=== PATIENT | female | born 2000 | race Caucasian/White ===

== ENCOUNTER 2022-03-14 08:21 | Outpatient (REF) | payer OTHER, SELFPAY | END 2022-03-14 08:22 | disposition home or self-care (01) | LOC: HO.LAB 08:21 | PROVIDERS: PCP Student in an Organized Health Care Education/Training Program; Visit Provider Internal Medicine Rheumatology | DX: Z13.89 Encounter for screening for other disorder (principal) ==

== ENCOUNTER 2022-03-14 09:45 | Outpatient (REF) | payer OTHER, SELFPAY ==
[2022-03-14 10:30] LABS: MANUAL DIFF FLAG NO
[2022-03-14 10:38] LABS: Basophils Percent Auto 0.7 % (0-2); Eosinophils Percent Auto 0.2 % (0-4); Hematocrit 37.7 % (37.0-47.0); Hemoglobin 12.4 g/dl (12.0-16.0); Imm Gran Abs Auto 0.02 X10*3/uL (0.00-0.03); Imm Gran Pct Auto 0.4 % (0.0-0.4); Lymphocytes Absolute Auto 1.2 X10*3/uL (1.2-4.9); Mean Corpuscular HGB Conc 32.9 g/dl (31.0-35.0); Mean Corpuscular Hemoglobin 30.6 pg (27.0-33.0); Mean Corpuscular Volume 93.1 fL (80.0-98.0); Mean Platelet Volume 9.9 fL (9.4-12.3); Monocytes Absolute Auto 0.4 X10*3/uL (0.1-1.2); Neutrophils Absolute Auto 2.9 x10*3/uL (2.0-8.3); Neutrophils Percent Auto 63.7 % (45-73); Platelet Count 274 X10*3/uL (160-400); Red Blood Count 4.05 X10*6/uL (4.20-5.50); Red Cell Distribution Width 11.8 % (11.0-16.0); White Blood Count 4.5 X10*3/uL (4.8-10.8)
[2022-03-14 11:19] LABS: Erythrocyte Sedimentation Rate 13 MM/HR (0-20)
[2022-03-14 11:30] LABS: Alanine Aminotransferase 17 U/L (0-31); Albumin Level 4.6 g/dL (3.5-5.0); Alkaline Phosphatase 39 U/L (39-117); Anion Gap 13 (12-20); Aspartate Amino Transferase 20 U/L (5-31); Bilirubin Total 0.3 mg/dL (0.0-1.0); Blood Urea Nitrogen 9 mg/dL (9-16); C Reactive Protein < 0.04 mg/dL (< or = 0.50); Calcium 9.7 mg/dL (8.4-10.2); Carbon Dioxide 23 mmol/L (22-29); Chloride 107 mmol/L (96-108); Estimated Glomerular Filt Rate > 60; Glucose Random 89 mg/dL (60-115); Potassium 3.5 mmol/L (3.3-5.1); Sodium 139 mmol/L (135-145); Total Protein 7.1 g/dL (6.5-8.0)
[2022-03-14 14:57] LABS: Creatinine Urine 50.72 mg/dL; Total Protein Urine Random < 7 mg/dL (<12)
[2022-03-15 09:18] LABS: Complement C3 79 mg/dL (83-193)
[2022-03-17 13:18] LABS: Anti DNA DS Antibody 68 IU/mL
== END 2022-03-14 09:46 | disposition home or self-care (01) ==
LOC: HO.10HDL 09:45
PROVIDERS: Visit Provider Internal Medicine Rheumatology
DX: M32.9 Systemic lupus erythematosus, unspecified (principal); Z79.60 Long term (current) use of unspecified 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 and immunosuppressants
CPT/HCPCS: 36415; 80053; 84156; 85025; 85652; 86140; 86160; 86225

== ENCOUNTER → 2022-05-01 11:18 | Outpatient (BNVA) | payer OTHER, SELFPAY | PROVIDERS: PCP Student in an Organized Health Care Education/Training Program; Visit Provider Internal Medicine Rheumatology | DX: Z13.89 Encounter for screening for other disorder (principal) ==

== ENCOUNTER 2022-05-01 12:56 | Outpatient (REF) | payer OTHER, SELFPAY ==
[2022-05-01 13:41] LABS: MANUAL DIFF FLAG NO
[2022-05-01 14:04] LABS: Basophils Percent Auto 0.4 % (0-2); Eosinophils Percent Auto 0.7 % (0-4); Hematocrit 37.9 % (37.0-47.0); Hemoglobin 12.7 g/dl (12.0-16.0); Imm Gran Abs Auto 0.01 X10*3/uL (0.00-0.03); Imm Gran Pct Auto 0.2 % (0.0-0.4); Lymphocytes Percent Auto 21.4 % (20-40); Mean Corpuscular HGB Conc 33.5 g/dl (31.0-35.0); Mean Corpuscular Hemoglobin 31.1 pg (27.0-33.0); Mean Corpuscular Volume 92.9 fL (80.0-98.0); Mean Platelet Volume 10.7 fL (9.4-12.3); Monocytes Absolute Auto 0.4 X10*3/uL (0.1-1.2); Monocytes Percent Auto 8.1 % (2-11); Neutrophils Absolute Auto 3.1 x10*3/uL (2.0-8.3); Neutrophils Percent Auto 69.2 % (45-73); Platelet Count 259 X10*3/uL (160-400); Red Blood Count 4.08 X10*6/uL (4.20-5.50); Red Cell Distribution Width 11.5 % (11.0-16.0); White Blood Count 4.5 X10*3/uL (4.8-10.8)
[2022-05-01 14:36] LABS: Anion Gap 13 (12-20); Blood Urea Nitrogen 8 mg/dL (9-16); C Reactive Protein < 0.04 mg/dL (< or = 0.50); Calcium 9.2 mg/dL (8.4-10.2); Carbon Dioxide 24 mmol/L (22-29); Chloride 109 mmol/L (96-108); Estimated Glomerular Filt Rate > 60; Glucose Random 87 mg/dL (60-115); Potassium 3.5 mmol/L (3.3-5.1); Sodium 142 mmol/L (135-145)
[2022-05-01 14:53] LABS: Erythrocyte Sedimentation Rate 16 MM/HR (0-20)
== END 2022-05-01 12:57 | disposition home or self-care (01) ==
LOC: HO.10HDL 12:56
PROVIDERS: Visit Provider Internal Medicine Rheumatology
DX: M32.9 Systemic lupus erythematosus, unspecified (principal); Z79.60 Long term (current) use of unspecified 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 and immunosuppressants
CPT/HCPCS: 36415; 80048; 85025; 85652; 86140

== ENCOUNTER → 2022-08-17 11:07 | Outpatient (BNVA) | payer OTHER, SELFPAY | PROVIDERS: PCP Student in an Organized Health Care Education/Training Program; Visit Provider Internal Medicine Rheumatology ==

== ENCOUNTER 2022-12-04 10:14 | Outpatient (AMB) | payer OTHER, SELFPAY ==
--- NOTE | 2022-12-04 10:21 | A.OFFVIS_ITS ---
Intake Vital Signs 12/04/22 10:23 Weight 130 lb 8.218 oz BP 112/70 Blood Pressure Location Rt brachial Position Sitting Pulse 104 H Pulse Source Pulse Oximeter Temp 98.1 F Temp Source Skin Pulse Oximetry (%) 99 Oxygen Delivery Method Room Air Intake Visit Reasons: sle Intake Note: Patient presents today to follow up on SLE. c/o daily headaches x 2.5 wks. Frequent ZAMBRANO's for 2 years now. Seeing neurology. Allergies No Known Allergies Allergy (Verified 12/04/22 10:26) HPI HPI Comments History of Present Illness Details Valdez, 22yo, [employer] student, returns for follow-up of SLE; mother accompanies patient here today. The patient is doing well at todays visit - good days are more than bad achy days. The patient remains on 200 mg daily hydroxychloroquine and 125 mg daily azathioprine, and no takes amitriptyline 25 mg. The patient continues with sumatriptan for migraine headache therapy. Per patient, arthralgias tend to come and go, not lasting more than two days and is commonly in the hands and the knees. Patient denies recent oral ulcers, hair loss but has a mild rash on nose bridge. There has been no abdominal pain or chest pain. The patient continues to do well in college. Denies fevers, unexplained weight-loss or weight-gain, thinning hair or hair loss; dry mouth, mouth sores or ulcers; ringing in the ear, The patient does experience symptoms such as rashes, severe fatigue and nausea, if out in the sun for long periods. However, has not had any recent episodes. Patient denies Raynaud's phenomenon, denies blood or froth in urine; patient denies SOB and chest pain. Patient denies episodes of Carditis or Pleuritis. Patient denies any history of DVT/PE. PFSH Surgical History [place] teeth extracted Family History Maternal Grandfather Rheumatoid arthritis Maternal Aunt Ulcerative colitis Father Hypertension Mother Hypertension Social History Household Members: Family Housing: Apartment Alcohol intake: never Patient Tobacco Use Status: Never used Tobacco Current occupational status: student Review of Systems Const Details: Some fatigue at times, particularly when she is having more headaches and arthralgias. Negative for appetite change, weight change, fever, chills, malaise Eyes Details: She believes the migraine headaches have been a bit more frequent recently. Negative for vision change, dry eyes, and dizziness ENT Details: Negative for hearing change, tinnitus, oral ulcer, nose bleeds and oral dryness. Card Details: Negative chest pain, edema and syncope Resp Details: Negative for SOB, cough and wheezing GI Details: Negative indigestion/heartburn, nausea, abdominal pain, bowel changes, diarrhea, constipation and bloody stool. Skin/Breast Details: Negative for itching, rash, hives, Raynaud's symptoms, sun sensitivity, and skin cancer Neuro Details: Negative for epilepsy, palsy, stroke, changes in speech, tingling and weakness Psych Details: Negative for anxiety, depression and stress Endo Details: Negative for polyuria and polydypsia Trey/Lymph Details: Negative for excessive bruising or bleeding. Physical Exam Vital Signs: Last Vital Signs Temp 98.1 F 12/04/22 10:23 Pulse 104 H 12/04/22 10:23 BP 112/70 12/04/22 10:23 Pulse Ox 99 12/04/22 10:23 Oxygen Delivery Method Room Air 12/04/22 10:23 APPEARANCE: Patient in no acute distress EYES no redness, pupils equal and reactive to light, eyelids normal EARS:? External ear normal, canal clear and tympanic membrane normal. NOSE/SINUS:? Airflow through both nares, no nasal discharge, no bleeding THROAT:? Oral mucosa moist, no ulcerations NECK:? No thyromegaly or masses, no adenopathy, trachea midline. HEART:? Regulrar rhythm, S1-S2 heard, no murmurs, rubs or gallops. LUNG:? Clear to percussion and auscultation ABD:? Normal bowel sounds, no organomegaly, masses or tenderness. EXTREMITIES:? No edema, no calf tenderness, normal peripheral pulses. NEURO:? Oriented and alert x3.? No focal weakness.? Reflexes symmetric.? Gait normal. SKIN:? There are no skin lesions evident. No objective signs of Raynaud's phenomenon. JOINT EXAM: ?? Cervical Spine:.? Full range of motion without pain; no tenderness. Thoracic Spine:.? No scoliosis.? No tenderness on palpation. Lumbar Spine:.? Alignment normal.? Full range of motion without pain, no tenderness. Chest Wall:.? No tenderness, swelling, increased warmth or erythema. Hands:.? Normal pain-free range of motion without tenderness, swelling, increased warmth or erythema. Able to make a full fist and has a good webfed offset press operator strength. Wrists:.? Normal pain-free range of motion without tenderness, swelling, increased warmth or erythema. Elbows:. Normal pain-free range of motion without tenderness, swelling, increased warmth or erythema. Shoulders:.?? Full range of motion without pain. No tenderness, weakness, swelling, increased warmth or erythema. Hips:.? Full range of motion without pain. Hip bursa:.? No tenderness. Knees:.?? Normal pain-free range of motion without tenderness, swelling, increased warmth or erythema.? There is no effusion or crepitation Ankles:.? Normal pain-free range of motion without tenderness, swelling, increased warmth or erythema. Feet:.? Normal pain-free range of motion without tenderness, swelling, increased warmth or erythema. Tender points:? No tenderness to digital palpation at the occiput, trapezius, second rib, lateral epicondyle, knees, greater trochanter and gluteal area bilaterally. ? ? 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 Prednisone and Plaquenil started. Methotrexate added but changed to azathioprine in fall. March 2022 eye exam okay with respect to hydroxychloroquine toxicity. Code(s): M32.9 - Systemic lupus erythematosus, unspecified Plan Patient with SLE doing reasonably well with mostly complaints of intermittent arthralgias, fatigue and migraine headaches. No tenderness to joints appreciated on exam. She has a rash to her nose for the last 2 weeks (will continue to monitor). Patient indicated this similar rash was part of her initial diagnosis. The lab work from June 2022 did show still slight suppression of serum complement but the acute phase reactants remain normal. We do need updated labs and will recheck the lab today. We will continue all medications as is for now and consider tapering Prednisone at next visit. The patient gets stressed from school and that often increases the frequency and intensity of the headaches. Encouraged patient to increase activities that helps to relax such as take walks to clear head and regroup;also to engage with friends. All these things can help to manage stress. Given that fatigue is a known compliment to SLE, encouraged adequate rest and sleep (will discuss sleep hygiene next visit). We discussed nutrition and hydration. Currently takes Calcium and Vitamin D, B2 and Magnesium Malate. Encourage that since SLE is likely a life Dx, it is best to be mindful of and intentional with self care from now as this can help to lessen the frequency of flares and mitigate the severity of the flares. Follow-up in 4 months. Orders: Orders Complement C4 Today M32.9 - Systemic lupus erythematosus, unspecified Complement C3 Today M32.9 - Systemic lupus erythematosus, unspecified Erythrocyte Sedimentation Rate Today M32.9 - Systemic lupus erythematosus, unspecified Protein Creatinine Ratio, Ur Today M32.9 - Systemic lupus erythematosus, unspecified Comprehensive Met. Panel Today M32.9 - Systemic lupus erythematosus, unspecified C Reactive Protein 4 Months M32.9 - Systemic lupus erythematosus, unspecified, Z79.60 - snf (current) use of unspecified 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 and immunosuppressants Complete Blood Count Auto Diff 4 Months M32.9 - Systemic lupus erythematosus, unspecified, Z79.60 - snf (current) use of unspecified 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 and immunosuppressants Erythrocyte Sedimentation Rate 4 Months M32.9 - Systemic lupus erythematosus, unspecified, Z79.60 - snf (current) use of unspecified 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 and immunosuppressants C Reactive Protein Today M32.9 - Systemic lupus erythematosus, unspecified Complete Blood Count Auto Diff Today M32.9 - Systemic lupus erythematosus, unspecified UA and rflx microscopic Today M32.9 - Systemic lupus erythematosus, unspecified Comprehensive Met. 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
[2022-12-04 10:23] VITALS: BP 112/70; PULSE 104; TEMP 36.7; O2SAT 99
== END 2022-12-04 10:51 | disposition home or self-care (01) ==
PROVIDERS: PCP Student in an Organized Health Care Education/Training Program; Visit Provider Nurse Practitioner Family
DX: M32.8 Other forms of systemic lupus erythematosus (principal); Z79.624 Long term (current) use of inhibitors of nucleotide synthesis
CPT/HCPCS: 99214

== ENCOUNTER → 2022-12-04 10:14 | Outpatient (BNVA) | payer OTHER, SELFPAY | PROVIDERS: PCP Student in an Organized Health Care Education/Training Program; Visit Provider Nurse Practitioner Family ==

== ENCOUNTER 2023-04-03 12:10 | Outpatient (REF) | payer OTHER, SELFPAY ==
[2023-04-03 12:23] LABS: MANUAL DIFF FLAG NO
[2023-04-03 13:34] LABS: Basophils Percent Auto 0.6 % (0-2); Eosinophils Percent Auto 1.1 % (0-4); Hematocrit 36.9 % (37.0-47.0); Hemoglobin 12.4 g/dl (12.0-16.0); Imm Gran Abs Auto 0.02 X10*3/uL (0.00-0.03); Imm Gran Pct Auto 0.6 % (0.0-0.4); Lymphocytes Absolute Auto 1.4 X10*3/uL (1.2-4.9); Lymphocytes Percent Auto 39.6 % (20-40); Mean Corpuscular HGB Conc 33.6 g/dl (31.0-35.0); Mean Corpuscular Hemoglobin 30.8 pg (27.0-33.0); Mean Corpuscular Volume 91.6 fL (80.0-98.0); Mean Platelet Volume 10.1 fL (9.4-12.3); Monocytes Absolute Auto 0.5 X10*3/uL (0.1-1.2); Monocytes Percent Auto 12.6 % (2-11); Neutrophils Absolute Auto 1.6 x10*3/uL (2.0-8.3); Neutrophils Percent Auto 45.5 % (45-73); Platelet Count 289 X10*3/uL (160-400); Red Blood Count 4.03 X10*6/uL (4.20-5.50); Red Cell Distribution Width 12.1 % (11.0-16.0); White Blood Count 3.6 X10*3/uL (4.8-10.8)
[2023-04-03 13:39] LABS: Alanine Aminotransferase 60 U/L (0-31); Alkaline Phosphatase 46 U/L (39-117); Anion Gap 11 (12-20); Aspartate Amino Transferase 29 U/L (5-31); Bilirubin Total 0.4 mg/dL (0.0-1.0); Blood Urea Nitrogen 10 mg/dL (9-16); C Reactive Protein < 0.04 mg/dL (< or = 0.50); Calcium 9.4 mg/dL (8.4-10.2); Carbon Dioxide 24 mmol/L (22-29); Chloride 111 mmol/L (96-108); Estimated Glomerular Filt Rate > 60; Glucose Random 79 mg/dL (60-115); Potassium 3.4 mmol/L (3.3-5.1); Sodium 143 mmol/L (135-145); Total Protein 6.9 g/dL (6.5-8.0)
[2023-04-03 13:49] LABS: Erythrocyte Sedimentation Rate 22 MM/HR (0-20)
== END 2023-04-03 12:11 | disposition home or self-care (01) ==
LOC: HO.LAB 12:10
PROVIDERS: PCP Student in an Organized Health Care Education/Training Program; Visit Provider Nurse Practitioner Family
DX: M32.9 Systemic lupus erythematosus, unspecified (principal); Z79.60 Long term (current) use of unspecified 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 and immunosuppressants
CPT/HCPCS: 36415; 80053; 85025; 85652; 86140

== ENCOUNTER 2023-04-10 09:44 | Outpatient (AMB) | payer OTHER, SELFPAY ==
--- NOTE | 2023-04-10 09:45 | A.OFFVIS_ITS ---
Intake Vital Signs 04/10/23 09:46 Height 5 ft 2 in Weight 124 lb BMI 22.7 BP 108/58 L Blood Pressure Location Rt brachial Position Sitting Pulse 80 Pulse Source Pulse Oximeter Temp 97.2 F Temp Source Skin Pulse Oximetry (%) 97 Oxygen Delivery Method Room Air Intake Visit Reasons: sle Intake Note: Patient last seen 12/04/22 by Bon, presents today for SLE follow up and test results. Emergency Medicine Specialist Required: No Accompanied by: Mother Allergies No Known Allergies Allergy (Verified 04/10/23 09:51) HPI HPI Comments History of Present Illness Details Valdez, 22yo, [employer] student, returns for follow-up of SLE; mother accompanies patient here today. The patient is not doing well at todays visit - more aches to knees and hands. The patient thinks this may be due to the migraines that were frequent for a while. The patient remains on 200 mg daily hydroxychloroquine and 125 mg daily azathioprine, and no takes amitriptyline 25 mg. She continues with sumatriptan for migraine headache therapy. Per patient, arthralgias tend to come and go, not lasting more than two days or three and is commonly in the hands and the knees. Patient denies recent oral ulcers and hair loss and rash is gone. There has been no abdominal pain or chest pain or SOB. The patient continues to do well in college. Denies fevers, unexplained weight-loss or weight-gain, thinning hair or hair loss; dry mouth, mouth sores or ulcers; ringing in the ear, The patient does experience symptoms such as rashes, severe fatigue and nausea, if out in the sun for long periods. However, has not had any recent episodes. Patient denies Raynaud's phenomenon, denies blood or froth in urine; patient denies SOB and chest pain. Patient denies episodes of Carditis or Pleuritis. Patient denies any history of DVT/PE. [facility] Surgical History [place] teeth extracted Family History Maternal Grandfather Rheumatoid arthritis Maternal Aunt Ulcerative colitis Father Hypertension Mother Hypertension Social History Household Members: Family Housing: Apartment Alcohol intake: never Patient Tobacco Use Status: Never used Tobacco Current occupational status: student Physical Exam Vital Signs: Last Vital Signs Temp 97.2 F 04/10/23 09:46 Pulse 80 04/10/23 09:46 BP 108/58 L 04/10/23 09:46 Pulse Ox 97 04/10/23 09:46 Oxygen Delivery Method Room Air 04/10/23 09:46 BMI result Body Mass Index 22.7 APPEARANCE: Patient in no acute distress EYES no redness, eyelids normal EARS:? External ear normal. NOSE/SINUS:? Airflow through both nares, no nasal discharge, no bleeding THROAT:? Oral mucosa moist, no ulcerations NECK:? No thyromegaly or masses, no adenopathy, trachea midline. HEART:? Regulrar rhythm, S1-S2 heard, no murmurs, rubs or gallops. LUNG:? Clear to percussion and auscultation EXTREMITIES:? No edema, no calf tenderness, normal peripheral pulses. NEURO:? Oriented and alert x3.? No focal weakness.? Reflexes symmetric.? Gait normal. SKIN:? There are no skin lesions evident. No objective signs of Raynaud's phenomenon. JOINT EXAM: Cervical Spine:.? Full range of motion without pain; no tenderness. Thoracic Spine:.? No scoliosis.? No tenderness on palpation. Lumbar Spine:.? Alignment normal.? Full range of motion without pain, no tenderness. Chest Wall:.? No tenderness, swelling, increased warmth or erythema. Hands:.? Normal pain-free range of motion with mild tenderness, but no swelling, increased warmth or erythema. Able to make a full fist and has a good variety lathe operator strength. Wrists:.? Normal pain-free range of motion without tenderness, swelling, increased warmth or erythema. Elbows:. Normal pain-free range of motion without tenderness, swelling, increased warmth or erythema. Shoulders:.?? Full range of motion without pain. No tenderness, weakness, swelling, increased warmth or erythema. Hips:.? Full range of motion without pain. Hip bursa:.? No tenderness. Knees:.?? Normal pain-free range of motion without tenderness, swelling, increased warmth or erythema.? There is no effusion or crepitation Ankles:.? Normal pain-free range of motion without tenderness, swelling, increased warmth or erythema. Feet:.? Normal pain-free range of motion without tenderness, swelling, increased warmth or erythema. Tender points:? No tenderness to digital palpation at the occiput, trapezius, second rib, lateral epicondyle, knees, greater trochanter and gluteal area bilaterally. ? ? 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 Prednisone and Plaquenil started. Methotrexate added but changed to azathioprine in fall. March 2022 eye exam okay with respect to hydroxychloroquine toxicity. 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 Kellogg with SLE doing reasonably well with mostly complaints of intermittent arthralgias, fatigue and migraine headaches. No significant tenderness to joints appreciated on exam. The lab work from June 2022 did show still slight suppression of serum complement and now recent ESR is slightly elevated. Some of the labs were not done per patient - urinalysis and complements. We will increase HCQ to 200 gm BID and assess. There is a recent increase in ALT which could be due to increase tylenol use for migraines. We will continue to monitor that. She has had to stopp MTX in the past because of elevate ALT/AST. We hope this is not going to happen on Azothioprine. If the HCQ increase is effective, we may consider to stop Prednisone. Labs are ordered. The patient gets stressed from school and that often increases the frequency and intensity of the headaches. Encouraged patient to increase activities that helps to relax such as take walks to clear head and regroup;also to engage with friends. All these things can help to manage stress. Given that fatigue is a known compliment to SLE, encouraged adequate rest and sleep (will discuss sleep hygiene next visit). We discussed nutrition and hydration. Currently takes Calcium and Vitamin D, B2 and Magnesium Malate. Encourage that since SLE is l ikely a life Dx, it is best to be mindful of and intentional with self care from now as this can help to lessen the frequency of flares and mitigate the severity of the flares. Follow-up in 4 months. Medications: Changed From hydroxychloroquine 200 mg PO QAM 90 tabs 1RF M32.9 - Systemic lupus erythematosus, unspecified To hydroxychloroquine 200 mg PO BID 180 tabs 1RF M32.9 - Systemic lupus erythematosus, unspecified Coding Level of Care Code Tele Est Pt Level 3 (79485) Diagnoses Long-term use of immunosuppressant medication Z79.60 Systemic lupus erythematosus (SLE) in adult M32.9
[2023-04-10 09:46] VITALS: BP 108/58; PULSE 80; TEMP 36.2; O2SAT 97; BMI 22.7
== END 2023-04-10 10:36 | disposition home or self-care (01) ==
PROVIDERS: PCP Student in an Organized Health Care Education/Training Program; Visit Provider Nurse Practitioner Family
DX: M32.9 Systemic lupus erythematosus, unspecified (principal); Z79.60 Long term (current) use of unspecified 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 and immunosuppressants
CPT/HCPCS: 99214

== ENCOUNTER → 2023-04-10 09:44 | Outpatient (BNVA) | payer OTHER, SELFPAY | PROVIDERS: PCP Student in an Organized Health Care Education/Training Program; Visit Provider Nurse Practitioner Family ==

== ENCOUNTER 2023-08-30 15:25 | Outpatient (AMB) | payer OTHER, SELFPAY ==
--- NOTE | 2023-08-30 15:29 | A.OFFVIS_ITS ---
Vital Signs 08/30/23 15:32 Height 5 ft 2 in Weight 126 lb 15.78 oz BMI 23.2 BP 112/70 Blood Pressure Location Rt brachial Position Sitting Pulse 76 Pulse Source Pulse Oximeter Pulse Oximetry (%) 99 Oxygen Delivery Method Room Air Intake Visit Reasons: SLE/Labs/CM Intake Note: Patient presents for SLE. Allergies No Known Allergies Allergy (Verified 08/30/23 15:31) Medication List - Last Reconciled 08/30/23 by Ronak Marte MD azathioprine 50 mg PO TID calcium carbonate-vitamin D3 600 mg-12.5 mcg (500 unit) caps PO hydroxychloroquine 400 mg x 3 days a week, 200 mg x 4 days a week norethindrone (contraceptive) 0.35 mg PO DAILY prednisone 5 mg PO DAILY sumatriptan succinate 50 mg PO HPI Comments Details: This is a 23-year-old female with SLE who presents for follow-up. This is her 1st visit with me. She used to follow-up with Lilian Vee. Patient is on hydroxychloroquine 200 mg Twice daily, prednisone 5 mg daily and azathioprine 150 mg daily. She states that since increasing hydroxychloroquine dose last visit she did not notice much improvement. She continues to have intermittent and migrating joint pain affecting different joints without significant swelling. Minimal rashes affecting her chest. She has not had any fevers, weight loss, hair loss, canker sores, blood or froth in urine. She has done her blood work 2 weeks ago at [facility] but it has not been sent to our office. [facility] Surgical History [place] teeth extracted Family History Maternal Grandfather Rheumatoid arthritis Maternal Aunt Ulcerative colitis Father Hypertension Mother Hypertension Social History Household Members: Family Housing: Apartment Alcohol intake: never Patient Tobacco Use Status: Never used Tobacco Current occupational status: student Female Reproductive History Menstrual Total pregnancies: 0 Review of Systems Const Denies fever(s) and Denies weight loss Musc Reports arthralgias Skin/Breast Reports rash Physical Exam Vital Signs: Last Vital Signs Pulse 76 08/30/23 15:32 BP 112/70 08/30/23 15:32 Pulse Ox 99 08/30/23 15:32 Oxygen Delivery Method Room Air 08/30/23 15:32 BMI result Body Mass Index 23.2 Const General: cooperative, healthy appearing and comfortable Nutritional Appearance: average body habitus Orientation/consciousness: patient oriented x3 Limitations: no limitations HEENT Head: Yes normocephalic and Yes atraumatic Mouth: moist mucous membranes Resp Effort & Inspection: normal respiratory effort and able to speak in complete sentences Auscultation: clear to auscultation bilaterally Cardio Rate: regular rate Rhythm: regular rhythm GI Inspection: No distended Palpation (GI): Soft to palpation and nontender Skin General skin exam: no rashes or lesions noted Neuro General: patient oriented x3 Extrem Other: No active synovitis Normal nailfold capillaroscopy Assessment & Plan Assessment & Plan (1) Systemic lupus erythematosus (SLE) in adult: Comment: Onset summer 2020: Sun sensitive skin rash, arthralgias, positive DsDNA. Prednisone and Plaquenil started. MTX added but changed to azathioprine in fall. March 2022 eye exam okay with respect to hydroxychloroquine toxicity. Code(s): M32.9 - Systemic lupus erythematosus, unspecified Category: Medical Plan: This is a 23-year-old female with SLE who presents for follow-up. This is her 1st visit with me. She used to follow-up with Lilian Vee. Patient is on hydroxychloroquine 200 mg Twice daily, prednisone 5 mg daily and azathioprine 150 mg daily. I think patient exceeds her maximum hydroxychloroquine dose based on her body weight. Lower hydroxychloroquine to 400 mg x 3 days a week and 200 mg x 4 days a week On exam I do not see any features of active SLE, patient completed her blood work 2 weeks ago however but we did not receive it. I will called patient once we have the blood work on file Will consider lowering prednisone to 5 mg daily alternating with 2.5 mg daily Labs before next visit in 4 months (2) Long-term use of hydroxychloroquine: Comment: Eye exam okay 03/2022 Code(s): Z79.899 - Other long term care pharmacist (current) drug therapy Category: Medical Plan: Patient aware of risk of retinopathy associated with hydroxychloroquine. Follow-up regularly with data center solutions architect Hydroxychloroquine dose adjusted today (3) Long-term use of immunosuppressant medication: Code(s): Z79.60 - custodial (current) use of unspecified 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 and immunosuppressants Category: Medical Plan: Monitor safety labs for azathioprine Plan I spent 46 minutes reviewing patient's chart, evaluating patient, ordering diagnostic workup, counseling patient and documenting in the chart Orders: Orders Comprehensive Met. Panel 4 Months Ronak Marte MD M32.9 - Systemic lupus erythematosus, unspecified, Z79.899 - Other long term care pharmacist (current) drug therapy C Reactive Protein 4 Months Ronak Marte MD M32.9 - Systemic lupus erythematosus, unspecified, Z79.899 - Other long term care pharmacist (current) drug therapy Anti DNA DS Antibody 4 Months Ronak Marte MD M32.9 - Systemic lupus erythematosus, unspecified, Z79.899 - Other long term care pharmacist (current) drug therapy Complement C4 4 Months Ronak Marte MD M32.9 - Systemic lupus erythematosus, unspecified, Z79.899 - Other correction (current) drug therapy Complete Blood Count Auto Diff 4 Months Ronak Marte MD M32.9 - Systemic lupus erythematosus, unspecified, Z79.899 - Other long term care pharmacist (current) drug therapy Erythrocyte Sedimentation Rate 4 Months oRnak Marte MD M32.9 - Systemic lupus erythematosus, unspecified, Z79.899 - Other long term care pharmacist (current) drug therapy Complement C3 4 Months Ronak Marte MD M32.9 - Systemic lupus erythematosus, unspecified, Z79.899 - Other correction (current) drug therapy Protein Creatinine Ratio, Ur 4 Months Ronak Marte MD M32.9 - Systemic lupus erythematosus, unspecified, Z79.899 - Other long term care pharmacist (current) drug therapy UA w Microscopic 4 Months Ronak Marte MD M32.9 - Systemic lupus erythem atosus, unspecified, Z79.899 - Other correction (current) drug therapy Medications: Changed From hydroxychloroquine 200 mg PO BID 180 tabs 1RF M32.9 - Systemic lupus erythematosus, unspecified To hydroxychloroquine 400 mg x 3 days a week, 200 mg x 4 days a week M32.9 - Systemic lupus erythematosus, unspecified NOLAN Murphy-HEAVEN Coding Level of Care Code Est Pt Level 5 (74875) Complex EM visit Add On G2211 Diagnoses Systemic lupus erythematosus (SLE) in adult M32.9 Long-term use of hydroxychloroquine Z79.899 Long-term use of immunosuppressant medication Z79.60
[2023-08-30 15:32] VITALS: BP 112/70; PULSE 76; O2SAT 99; BMI 23.2
== END 2023-08-30 16:02 | disposition home or self-care (01) ==
PROVIDERS: PCP Student in an Organized Health Care Education/Training Program; Visit Provider Student in an Organized Health Care Education/Training Program
DX: M32.9 Systemic lupus erythematosus, unspecified (principal); Z79.899 Other long term (current) drug therapy; Z79.60 Long term (current) use of unspecified 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 and immunosuppressants
CPT/HCPCS: 99215; G2211

== ENCOUNTER → 2023-08-30 15:25 | Outpatient (BNVA) | payer OTHER, SELFPAY | PROVIDERS: PCP Student in an Organized Health Care Education/Training Program; Visit Provider Student in an Organized Health Care Education/Training Program ==

== ENCOUNTER 2024-01-01 14:01 | Outpatient (AMB) | payer OTHER, SELFPAY ==
--- NOTE | 2024-01-01 14:02 | MHC.OFFVIS ---
Vital Signs 01/01/24 14:05 Height 5 ft 2 in Weight 127 lb 15.78 oz BMI 23.4 BP 115/70 Blood Pressure Location Rt brachial Position Sitting Pulse 65 Pulse Source Pulse Oximeter Pulse Oximetry (%) 98 Oxygen Delivery Method Room Air Intake Visit Reasons: SLE/LM Intake Note: Patient presents for SLE. Allergies No Known Allergies Allergy (Verified 01/01/24 14:09) Medication List - Last Reconciled 01/01/24 by Ronak Marte MD atogepant (Qulipta) 60 mg PO DAILY azathioprine 50 mg PO TID calcium carbonate-vitamin D3 600 mg-12.5 mcg (500 unit) caps PO hydroxychloroquine 400 mg x 3 days a week, 200 mg x 4 days a week norethindrone (contraceptive) 0.35 mg PO DAILY prednisone 5 mg PO DAILY sumatriptan succinate 50 mg PO HPI Comments Details: This is a 23-year-old female with SLE who presents for follow-up. She remains on prednisone 5 mg daily, hydroxychloroquine as prescribed and azathioprine 50 mg t.i.d.. Patient states that she is doing about the same overall. She has been quite stressed recently she found out that her grandmother has cancer. She states that she gets intermittent joint pains, every 2-3 days she would have minor swelling or pain of 1 of her joints. She states that she increases her prednisone to 10 mg a day every 4-6 weeks. She would do it for 2-3 days. She has not had any skin significant skin rashes. No fevers or weight loss. REPLACED BY [facility] Surgical History [place] teeth extracted Family History Maternal Grandfather Rheumatoid arthritis Maternal Aunt Ulcerative colitis Father Hypertension Mother Hypertension Social History Household Members: Family Housing: Apartment Alcohol intake: never Patient Tobacco Use Status: Never used Tobacco Current occupational status: student Review of Systems Const Denies fever(s) and Denies weight loss Musc Reports arthralgias and Reports joint swelling Physical Exam Vital Signs: Last Vital Signs Pulse 65 01/01/24 14:05 BP 115/70 01/01/24 14:05 Pulse Ox 98 01/01/24 14:05 Oxygen Delivery Method Room Air 01/01/24 14:05 BMI result Body Mass Index 23.4 Const General: cooperative, healthy appearing and comfortable Nutritional Appearance: average body habitus Orientation/consciousness: patient oriented x3 Limitations: no limitations HEENT Head: Yes normocephalic and Yes atraumatic Mouth: moist mucous membranes Resp Effort & Inspection: normal respiratory effort and able to speak in complete sentences Auscultation: clear to auscultation bilaterally Cardio Rate: regular rate Rhythm: regular rhythm GI Inspection: No distended Palpation (GI): Soft to palpation and nontender Skin General skin exam: no rashes or lesions noted Neuro General: patient oriented x3 Extrem Other: No active synovitis Normal nailfold capillaroscopy Assessment & Plan Assessment & Plan (1) Systemic lupus erythematosus (SLE) in adult: Comment: Onset summer 2020: Sun sensitive skin rash, arthralgias, positive DsDNA. Prednisone and Plaquenil started. MTX added but changed to azathioprine in fall. March 2022 eye exam okay with respect to hydroxychloroquine toxicity. Code(s): M32.9 - Systemic lupus erythematosus, unspecified Category: Medical Plan: This is a 23-year-old female with SLE who presents for follow-up. Patient is on hydroxychloroquine prednisone 5 mg daily and azathioprine 150 mg daily. Doing well overall. No need to escalate her treatment at this time. Continue hydroxychloroquine to 400 mg x 3 days a week and 200 mg x 4 days a week Continue with prednisone 5 mg daily and azathioprine 150 mg daily Labs today and before next visit in 4 months (2) Long-term use of hydroxychloroquine: Comment: Eye exam okay 03/2022 Code(s): Z79.899 - Other [facility] (current) drug therapy Category: Medical Plan: Patient aware of risk of retinopathy associated with hydroxychloroquine. Follow-up regularly with buckle attaching machine operator (3) Long-term use of immunosuppressant medication: Code(s): Z79.60 - residential (current) use of unspecified 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 and immunosuppressants Category: Medical Plan: Monitor safety labs for azathioprine Plan I spent 26 minutes reviewing patient's chart, evaluating patient, ordering diagnostic workup, counseling patient and documenting in the chart Orders: Orders Complement C4 4 Months M32.9 - Systemic lupus erythematosus, unspecified C Reactive Protein 4 Months M32.9 - Systemic lupus erythematosus, unspecified Erythrocyte Sedimentation Rate 4 Months M32.9 - Systemic lupus erythematosus, unspecified Complete Blood Count Auto Diff 4 Months M32.9 - Systemic lupus erythematosus, unspecified Comprehensive Met. Panel 4 Months M32.9 - Systemic lupus erythematosus, unspecified Anti DNA DS Antibody 4 Months M32.9 - Systemic lupus erythematosus, unspecified Complement C3 4 Months M32.9 - Systemic lupus erythematosus, unspecified Protein Creatinine Ratio, Ur 4 Months M32.9 - Systemic lupus erythematosus, unspecified UA w Microscopic 4 Months M32.9 - Systemic lupus erythematosus, unspecified Medications: Refilled prednisone 5 mg PO DAILY 90 tabs 1RF M32.9 - Systemic lupus erythematosus, unspecified Discontinued fosfomycin tromethamine Discontinued Reason: Doctor's Order 3 grams PO ONCE 1 ea 0RF 3 doses Coding Level of Care Code Est Pt Level 4 (24377) Complex EM visit Add On G2211 Diagnoses Systemic lupus erythematosus (SLE) in adult M32.9 Long-term use of hydroxychloroquine Z79.899 Long-term use of immunosuppressant medication Z79.60
[2024-01-01 14:05] VITALS: BP 115/70; PULSE 65; O2SAT 98; BMI 23.4
== END 2024-01-01 14:35 | disposition home or self-care (01) ==
PROVIDERS: PCP Student in an Organized Health Care Education/Training Program; Visit Provider Student in an Organized Health Care Education/Training Program
DX: M32.9 Systemic lupus erythematosus, unspecified (principal); Z79.899 Other long term (current) drug therapy; Z79.60 Long term (current) use of unspecified 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 and immunosuppressants
CPT/HCPCS: 99214; G2211

== ENCOUNTER → 2024-01-01 14:01 | Outpatient (BNVA) | payer OTHER, SELFPAY | PROVIDERS: PCP Student in an Organized Health Care Education/Training Program; Visit Provider Student in an Organized Health Care Education/Training Program ==

== ENCOUNTER 2024-04-30 12:28 | Outpatient (AMB) | payer BC, SELFPAY ==
[2024-04-30 12:31] VITALS: BP 109/70; PULSE 69; O2SAT 99; BMI 22.7
--- NOTE | 2024-04-30 12:31 | MHC.OFFVIS ---
Vital Signs 04/30/24 12:31 Height 5 ft 2 in Weight 124 lb 5.451 oz BMI 22.7 BP 109/70 Blood Pressure Location Rt brachial Position Sitting Pulse 69 Pulse Source Pulse Oximeter Pulse Oximetry (%) 99 Oxygen Delivery Method Room Air Intake Visit Reasons: SLE Intake Note: Patient last seen by Doctor Ronak Marte on 01/01/24. Patient presents for SLE follow up and test results. Patient takes 40 mg of Propranolol, she states. Allergies No Known Allergies Allergy (Verified 04/30/24 12:36) Medication List - Last Reconciled 04/30/24 by Angela Leahy MD atogepant (Qulipta) 60 mg PO DAILY calcium carbonate-vitamin D3 600 mg-12.5 mcg (500 unit) caps PO hydroxychloroquine 400 mg x 3 days a week, 200 mg x 4 days a week norethindrone (contraceptive) 0.35 mg PO DAILY prednisone 5 mg PO DAILY sumatriptan succinate 50 mg PO HPI Comments Details: Patient is a 23-year-old female with migraine headache and lupus here today for follow up Interval History: Patient last seen 01/01/[address] Marte. At that time she was on prednisolone 5 mg daily, hydroxychloroquine and azathioprine 50 mg 3 times a day. She had some acute stressors in her life because she found out that her grandmother has cancer. Notes that she gets intermittent joint pains every 2-3 days at which time she would increase her Prednisolone to 10 mg a day this would occur every 4-6 weeks. Exam did not show any evidence of acute synovitis and no changes were made to her medications. Today patient is reporting more episodes of joint pain, worsening fatigue, intermittent rashes as well as oral ulcers. Rheumatologic History: SLE Onset summer 2020: Sun sensitive skin rash, arthralgias, positive DsDNA. Prednisone and Plaquenil started. MTX added but changed to azathioprine in fall. March 2022 eye exam okay with respect to hydroxychloroquine toxicity. Current Rheumatology Medication(s): Prednisolone 5 mg Azathioprine 150 mg daily Hydroxychloroquine 400 mg 3 days a week and 200 mg 4 days a week PFSH Surgical History [place] teeth extracted Family History Maternal Grandfather Rheumatoid arthritis Maternal Aunt Ulcerative colitis Father Hypertension Mother Hypertension Social History Household Members: Family Housing: Apartment Alcohol intake: never Patient Tobacco Use Status: Never used Tobacco Current occupational status: student Review of Systems Const Details: Review of Systems Constitutional: Denies fever, chills, weight loss ENT: Denies vision changes, eye pain or eye redness, dental caries, dry mouth GI: Denies nausea, vomiting, diarrhea, abdominal pain, change in BM Pulm: Denies SOB, WAGNER, hemoptysis, wheezing Cards: Denies chest pain, palpitations Skin: Denies Raynaud's, nail changes, photosensitivity, DISPOSAL WORKER: Denies headaches, weakness, paresthesias, recurrent falls MSK: as per HPI All other systems reviewed and are unremarkable except noted above Physical Exam Vital Signs: Last Vital Signs Pulse 69 04/30/24 12:31 BP 109/70 04/30/24 12:31 Pulse Ox 99 04/30/24 12:31 Oxygen Delivery Method Room Air 04/30/24 12:31 BMI result Body Mass Index 22.7 Vital signs reviewed Physical Examination CONSTITUITIONAL Patient alert and cooperative. Well appearing and in no apparent painful distress HEENT Conjunctiva and sclera clear. ?Pupils equal round and reactive to light. ?No lymphadenopathy. ? CHEST/RESPIRATORY SYSTEM Normal respiratory effort and able to speak in complete sentences. ?Clear to auscultation bilaterally. ?No crackles, rales, rhonchi, wheezes heard. CARDIAC SYSTEM Regular rate and rhythm. ?S1 and S2 heard no murmurs. ?Radial pulses intact bilaterally MSK Hands: ?Good digital solution architect strength bilaterally. No deformities noted. ?No synovitis noted to the MCPs, PIPs or DIPs. ?No tenderness to palpation of these joints. Wrists: ?Full range of motion at the wrists without pain. ?No tenderness to palpation or synovitis noted to the wrists. Elbows: Full range of motion without pain. No tenderness, weakness, swelling, increased warmth or erythema. Shoulders: Full range of motion without pain. No tenderness, weakness, swelling, increased warmth or erythema. Hips: Full range of motion without pain. Hip bursa: No tenderness to palpation Knees: ?Full range of motion. ?No tenderness, swelling, increased warmth or erythema.?No effusion or crepitations Ankles: Full range of motion. ?No tenderness, swelling, increased warmth or erythema.? Feet: ?Negative squeeze test. ?No tenderness to palpation or swelling of the MTPs. Tender points:?No tenderness to palpation of the bilateral trapezius, supraspinatus, greater trochanters, anterior costochondral junctions, bilateral gluteal areas, bilateral suboccipital muscle insertions SKIN Skin intact without rashes. Results Reviewed Results Reviewed: Scanned lab reports reviewed UA 2+ protein, trace blood with 3-5 RBCs UPC 0.79 (last upc seen 10/03/2023 0.48) Creatinine 0.7 CRP <3.0 ESR 15 WBC 3.95 (low) HB 12.3 Platelets 275 04/21/24 09/20/23 10/02/23 08/15/23 WBC 3.95 4.71 Hb 12.3 13.0 Plt 275 297 Cr 0.7 0.5 AST 21 24 ALT 21 24 UA RBC 3-5 Trace blood 2+protein RBC none Trace blood Negative protein RBC 3-5 Trace blood 2+ protein RBC 0-2 Trace blood 2+ protein UPC 0.79 0.52 0.48 0.61 ESR 15 12 CRP <3 <3 C3 25 68 C4 <6 7 dsDNA Assessment & Plan Assessment & Plan (1) Systemic lupus erythematosus (SLE) in adult: Comment: Onset summer 2020: Sun sensitive skin rash, arthralgias, positive DsDNA. Prednisone and Plaquenil started. MTX added but changed to azathioprine in fall. March 2022 eye exam okay with respect to hydroxychloroquine toxicity. AZA ineffective 04/2024 Mtx restarted 04/2024 Code(s): M32.9 - Systemic lupus erythematosus, unspecified Category: Medical Plan: #SLE Patient is a 23-year-old gender neutral person with lupus. Currently with more activity as evidenced by her increased joint pain and rashes. Her complement also has declined. Discussed changing medications. Patient previously on methotrexate and did not have any adverse effect to this. Given that they are not sexually active with no plans to become I think it is safe to move forward with methotrexate. If this does not help with the symptoms we can consider Benlysta Plan - Stop azathioprine - Start Mtx 15mg weekly - Folic acid 1 mg daily - Continue plaquenil 400mg 3 days a week and 200mg 4 days a week - RTC 4 months - Labs before visit: CBC, CMP, ESR, CRP, C3, C4, dsDNA, UA, UPC (2) Long-term use of hydroxychloroquine: Comment: Eye exam okay 03/2022 Code(s): Z79.899 - Other group home (current) drug therapy Category: Medical Plan: #Long-term Use of Hydroxychloroquine Discussed with patient the risks and benefits of hydroxychloroquine in managing the rheumatic condition Benefits include: - Reduced pain, reduce mortality, maintenance of remission and reduction of flares Risks include: - GI upset, skin hyperpigmentation, retinal toxicity (especially after more than 5 years of use), myopathy Advised yearly ophthalmology visits (3) Encounter for methotrexate monitoring: Code(s): Z51.81 - Encounter for therapeutic drug level monitoring; Z79.631 - halfway (current) use of antimetabolite agent Plan: #Long-term Current Use of Methotrexate Discussed with patient the benefits and risks of methotrexate for managing their rheumatic condition Benefits include reduced pain, reduced mortality, maintenance of remission and reduction of flares Risks include oral ulcers, photosensitivity, hepatotoxicity, hematologic toxicity, pneumonitis, flu-like symptoms (especially day after administration), nodulosis, lymphomas ? Limit alcohol and avoid Bactrim ? Monitoring: ?CBC, BMP, LFTs every 3-4 months and hepatitis serologies as needed ? Methotrexate is teratogenic. ?If planning need to discontinue 3 months prior to conception Plan I spent 36 minutes reviewing the record and labs, taking a history, examining the patient, discussing the treatment plan, ordering diagnostic work up and documenting in the medical record Orders: Referrals Nephrology Referral M32.9 - Systemic lupus erythematosus, unspecified Medications: New methotrexate sodium 15 mg (6 x 2.5 mg) PO QWEEK 78 tabs 1RF 90 days M32.9 - Systemic lupus erythematosus, unspecified folic acid 1 mg PO DAILY 90 tabs 1RF M32.9 - Systemic lupus erythematosus, unspecified Changed From prednisone 5 mg PO DAILY 90 tabs 1RF M32.9 - Systemic lupus erythematosus, unspecified To prednisone 5 - 10 mg (1 - 2 x 5 mg) PO DAILY 40 tabs 3RF M32.9 - Systemic lupus erythematosus, unspecified Refilled hydroxychloroquine 400 mg x 3 days a week, 200 mg x 4 days a week 120 tabs 1RF M32.9 - Systemic lupus erythematosus, unspecified Coding Level of Care Code Est Pt Level 4 (03344) Complex EM visit Add On G2211 Diagnoses Systemic lupus erythematosus (SLE) in adult M32.9 Long-term use of hydroxychloroquine Z79.899 Encounter for methotrexate monitoring Z51.81; Z79.631
== END 2024-04-30 13:29 | disposition home or self-care (01) ==
PROVIDERS: PCP Student in an Organized Health Care Education/Training Program; Visit Provider Student in an Organized Health Care Education/Training Program
DX: M32.9 Systemic lupus erythematosus, unspecified (principal); Z79.899 Other long term (current) drug therapy; Z51.81 Encounter for therapeutic drug level monitoring; Z79.631 Long term (current) use of antimetabolite agent
CPT/HCPCS: 99214

== ENCOUNTER → 2024-04-30 12:28 | Outpatient (BNVA) | payer BC, SELFPAY | PROVIDERS: PCP Student in an Organized Health Care Education/Training Program; Visit Provider Student in an Organized Health Care Education/Training Program ==

== ENCOUNTER 2024-06-11 13:28 | Outpatient (REF) | payer BC, SELFPAY ==
--- OUTSIDE RECORDS SUMMARY | 2024-06-11 17:14 | XMS_ITS | Encounter Summary ---
Author Organization [facility] Address [address] [place] [address] Phone Care Team Providers Care Scenery Builder Name Role Phone Goldie Melo MD Primary Care Provider Encounter Details Date Type Department Care Team (Late st Contact Info) Description 05/28/2024 Documentation Only [facility] [place], [address] [place] [address] [place], [place] [address] [place] [address] Social History Tobacco Use Types [...] on filedocumented in this encounter Care Teams Scenery Builder Relationship Specialty Start Date End Date Goldie Melo MD [address] [place] [address], [facility] [address] [place] [address] PCP - General Target Setter 05/28/24 documented as of this encounter
--- OUTSIDE RECORDS SUMMARY | 2024-06-11 17:14 | XMS_ITS | Clinical Summary ---
Author Organization [facility], Address [address] [place] [address] [place] [phone] Phone Care Team Providers Care Supervisor Home Restoration Service Name Role Phone Goldie Melo MD Primary Care Provider [phone] Encounters Date Type Department Care Team Description 06/04/2024 Telephone [facility] [address] [place] [phone] Laura Barrientos MA 05/28/2024 Documentation Only [facility] [address] [place] [phone] Laura Barrientos MA from Last 3 Months [...] B Vaccine Completed 11/30/2003, 2002, [address] [place] [address] Care Teams Supervisor Home Restoration Service Relationship Specialty Start Date End Date Goldie Melo MD [address] [place] [address], [address] [place], [place] [phone] PCP - General Med Peds 05/28/24
== END 2024-06-11 13:29 | disposition home or self-care (01) ==
LOC: HO.LAB 13:28
PROVIDERS: PCP Student in an Organized Health Care Education/Training Program; Visit Provider Internal Medicine Nephrology
DX: Z13.89 Encounter for screening for other disorder (principal)

== ENCOUNTER 2024-06-11 13:28 | Outpatient (AMB) | payer BC, SELFPAY ==
--- NOTE | 2024-06-11 13:34 | HO.NEPHOV ---
Vital Signs 06/11/24 13:37 Height 5 ft 2 in Weight 122 lb 2 oz BMI 22.3 BP 122/88 Blood Pressure Location Lt brachial Position Sitting Pulse 71 Pulse Source Pulse Oximeter Pulse Oximetry (%) 100 Oxygen Delivery Method Room Air Intake Visit Reasons: INP: Systemic lupus erythematosus, unspecified Quality Assurance Manager Required: No Accompanied by: Mother Allergies No Known Allergies Allergy (Verified 06/11/24 13:37) HPI Comments Details: I had the pleasure of seeing Valdez in consultation for proteinuria. She is known to have systemic lupus erythematosus and is on prednisone as well as methotrexate. She is closely followed up by Rheumatology. She has been having worsening proteinuria over years. She does not have any pedal edema. SLE was diagnosed in 2020 when she developed sun sensitive skin rash, arthralgia and was found to have positive double-stranded DNA. Methotrexate was added after finding azathioprine to be ineffective. She does not have any pedal edema. She denies having hematuria, froth or foam in the urine. She is not hypertensive and her blood pressure has been normal. She never had a renal biopsy in the past. [facility] Surgical History [place] teeth extracted Family History Maternal Grandfather Rheumatoid arthritis Maternal Aunt Ulcerative colitis Father Hypertension Mother Hypertension Social History Household Members: Family Housing: Apartment Alcohol intake: never Patient Tobacco Use Status: Never used Tobacco Current occupational status: student Review of Systems Const All systems reviewed & are unremarkable except as noted in HPI and below Physical Exam Vital Signs: Last Vital Signs Pulse 71 06/11/24 13:37 BP 122/88 06/11/24 13:37 Pulse Ox 100 06/11/24 13:37 Oxygen Delivery Method Room Air 06/11/24 13:37 BMI result Body Mass Index 22.3 Const General: comfortable and no acute distress Orientation/consciousness: patient oriented x3 HEENT Head: Yes normocephalic Eyes EOM: EOMs intact bilaterally Neck Neck: Yes supple Resp Auscultation: clear to auscultation bilaterally Cardio Jugular venous distension: no JVD Rate: regular rate GI Palpation (GI): Soft to palpation Auscultation: normal bowel sounds General: Yes no CVA tenderness Back/Spine/Pelvis Back: no CVA tenderness Skin General skin exam: no rashes or lesions noted Neuro General: patient oriented x3 and moves all extremities Extrem General: Yes no pedal edema Assessment & Plan Assessment & Plan (1) Systemic lupus erythematosus (SLE) in adult: Comment: Onset summer 2020: Sun sensitive skin rash, arthralgias, positive DsDNA. Prednisone and Plaquenil started. MTX added but changed to azathioprine in fall. March 2022 eye exam okay with respect to hydroxychloroquine toxicity. 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 She never had a renal biopsy. She has been having worsening proteinuria. She is not on any WEN inhibitor or angiotensin receptor rebecca. I discussed about different kinds of lupus nephritis and the need for a renal biopsy. I ordered 24 hour urine collection for protein along with CBC and INR. We shall get a renal imaging done prior to biopsy if not done earlier. I shall initiate her on ARB. She is on methotrexate as well as folic acid. She does not take excessive nonsteroidal anti-inflammatories for joint pains. She has no edema. Her renal functions are normal. Her blood pressure is at goal. All these have been explained in detail to the patient and her mom. All questions answered. Follow-up appointment given. Orders: Orders Protein, 24 Hr Urine Group 06/11/24 M32.9 - Systemic lupus erythematosus, unspecified, R80.9 - Proteinuria, unspecified Complete Blood Count Auto Diff 06/11/24 R80.9 - Proteinuria, unspecified, M32.9 - Systemic lupus erythematosus, unspecified Prothrombin Time INR 06/11/24 R80.9 - Proteinuria, unspecified, M32.9 - Systemic lupus erythematosus, unspecified Coding Level of Care Code New Pt Level 4 (34492) Diagnoses Systemic lupus erythematosus (SLE) in adult M32.9 Other proteinuria R80.8 Proteinuria type: other
[2024-06-11 13:37] VITALS: BP 122/88; PULSE 71; O2SAT 100; BMI 22.3
--- OUTSIDE RECORDS SUMMARY | 2024-06-11 15:58 | XMS_ITS | Clinical Summary ---
Author Organization [facility], Address [address] [place] [address] [place] [phone] Phone Care Team Providers Care Ecological Technical Officer Name Role Phone Goldie Melo MD Primary Care Provider Encounters Date Type Department Care Team Description 06/04/2024 Telephone [facility] [address] [place] [phone] Laura Barrientos MA 05/28/2024 Documentation Only [facility] [address] [place] [phone] Laura Barrientos MA from Last 3 Months Social History Tobacco Use Types Packs/Day Years Used Date Smoking Tobacco: Never Assessed Comments Unknown Sex and Gender Information Value Date Recorded Sex Assigned at Not on file Legal Sex Female 3:10 PM EDT Gender Identity Not on file Sexual Orientation Not on file Plan of Treatment Health Maintenance Due Date Last Done Comments Pneumococcal Vaccine: Peds ( 0 to 5 Years) and At-Risk Patients (6 to 49 Years) (1 of 2 - PCV) 2021 01/01/2004, 02/23/2003, 2002, Additional history exists Influenza Vaccine (Season Ended) 2024 11/10/19 Hepatitis B Vaccine Completed 11/30/2003, 2002, [address] [place] [address] Care Teams Ecological Technical Officer Relationship Specialty Start Date End Date Goldie Melo MD [address] [place] [address], [address] [place], [place] [phone] PCP - General Bunch Breaker 05/28/24
--- OUTSIDE RECORDS SUMMARY | 2024-06-11 15:58 | XMS_ITS | Encounter Summary ---
Author Organization [facility] Address [address] [place] [address] Phone Care Team Providers Care Chief Credit Officer Name Role Phone Goldie Melo MD Primary Care Provider [phone] Encounter Details Date Type Department Care Team (Late st Contact Info) Description 05/28/2024 Documentation Only [facility] [place], [address] [place] [address] [place], [place] [address] [place] [address] Social History Tobacco Use Types Packs/Day Years Used Date Smoking Tobacco: Never Assessed Comments Unknown Sex and Gender Information Value Date Recorded Sex Assigned at Not on file Legal Sex Female 3:10 PM EDT Gender Identity Not on file Sexual Orientation Not on file documented as of this encounter Plan of Treatment Not on file documented as of this encounter Visit Diagnoses Not on filedocumented in this encounter Care Teams Chief Credit Officer Relationship Specialty Start Date End Date Goldie Melo MD [address] [place] [address], [facility] [address] [place] [address] PCP - [employer] Meter Installer Helper 05/28/24 documented as of this encounter
== END 2024-06-11 14:14 | disposition home or self-care (01) ==
LOC: HO.HKA 13:29
PROVIDERS: PCP Student in an Organized Health Care Education/Training Program; Visit Provider Internal Medicine Nephrology
DX: M32.9 Systemic lupus erythematosus, unspecified (principal); R80.8 Other proteinuria
CPT/HCPCS: 99204

== ENCOUNTER 2024-06-30 12:42 | Outpatient (REF) | payer BC, SELFPAY ==
--- OUTSIDE RECORDS SUMMARY | 2024-06-30 13:02 | XMS_ITS | Encounter Summary ---
Author Organization [facility] Address [address] [place] [address] Phone Care Team Providers Care Reprographics Technician Name Role Phone Goldie Melo MD Primary Care Provider Encounter Details Date Type Department Care Team (Late st Contact Info) Description 05/28/2024 Documentation Only [facility] [place], [address] [place] [address] Maritza Barrientos[place], [place] [address] [place] [address] Social History Tobacco Use Types [...] on filedocumented in this encounter Care Teams Reprographics Technician Relationship Specialty Start Date End Date Goldie Melo MD [address] [place] [address], [facility] [address] [place] [address] PCP - General Collateral Clerk 05/28/24 documented as of this encounter
--- OUTSIDE RECORDS SUMMARY | 2024-06-30 13:02 | XMS_ITS | Clinical Summary ---
Author Organization [facility] Address [address] [place] [address] [place] [phone] Phone Care Team Providers Care Police Patrol Officer Name Role Phone Goldie Melo MD Primary Care Provider Encounters Date Type Department Care Team Description 06/04/2024 Telephone [facility] [address] [place] [phone] Laura Barrientos MA 05/28/2024 Documentation Only [facility] [address] [place] [phone] Laura Barrientos MA from Last 3 Months [...] B Vaccine Completed 11/30/2003, 2002, [address] [place] [address] Care Teams Police Patrol Officer Relationship Specialty Start Date End Date Goldie Melo MD [address] [place] [address], [address] [place], [place] [phone] PCP - General Sand Mill Operator 05/28/24
[2024-06-30 13:06] LABS: MANUAL DIFF FLAG NO
[2024-06-30 13:47] LABS: Basophils Percent Auto 0.7 % (0-2); Eosinophils Percent Auto 0.7 % (0-4); Hematocrit 40.2 % (37.0-47.0); Hemoglobin 14.1 g/dl (12.0-16.0); Imm Gran Abs Auto 0.03 X10*3/uL (0.00-0.03); Imm Gran Pct Auto 0.7 % (0.0-0.4); Lymphocytes Absolute Auto 0.8 X10*3/uL (1.2-4.9); Lymphocytes Percent Auto 18.6 % (20-40); Mean Corpuscular HGB Conc 35.1 g/dl (31.0-35.0); Mean Corpuscular Volume 91.2 fL (80.0-98.0); Mean Platelet Volume 9.9 fL (9.4-12.3); Monocytes Absolute Auto 0.4 X10*3/uL (0.1-1.2); Neutrophils Absolute Auto 3.1 x10*3/uL (2.0-8.3); Neutrophils Percent Auto 71.3 % (45-73); Platelet Count 272 X10*3/uL (160-400); Red Blood Count 4.41 X10*6/uL (4.20-5.50); Red Cell Distribution Width 12.1 % (11.0-16.0); White Blood Count 4.4 X10*3/uL (4.8-10.8)
[2024-06-30 14:39] LABS: Creatinine, mg/dL 78.53; Protein mg/dL 89 mg/dL
[2024-06-30 16:49] LABS: Creatinine, 24Hr Urine 0.9 G/Day (1.0-2.0); Protein 24 Hr Urine 979 mg/Day (<150); Total Volume 24 Hour Urine 1100 mL
[2024-06-30 17:10] LABS: Prothrombin Time 11.7 SEC (10.9-12.4)
== END 2024-06-30 12:43 | disposition home or self-care (01) ==
LOC: HO.LAB 12:42
PROVIDERS: Visit Provider Internal Medicine Nephrology
DX: M32.9 Systemic lupus erythematosus, unspecified (principal); R80.9 Proteinuria, unspecified; Z79.01 Long term (current) use of anticoagulants
CPT/HCPCS: 36415; 84156; 85025; 85610

== ENCOUNTER 2024-07-16 10:50 | Outpatient (AMB) | payer BC, SELFPAY ==
--- NOTE | 2024-07-16 10:53 | HO.NEPHOV ---
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 She is known to have systemic lupus erythematosus and is on prednisone as well as methotrexate. She is closely followed up by Rheumatology. She has been having worsening proteinuria over years. She does not have any pedal edema. SLE was diagnosed in 2020 when she developed sun sensitive skin rash, arthralgia and was found to have positive double-stranded DNA. Methotrexate was added after finding azathioprine to be ineffective. She does not have any pedal edema. She denies having hematuria, froth or foam in the urine. She is not hypertensive and her blood pressure has been normal. She never had a renal biopsy in the past. She had a 24 hour urine collection which showed significant protein. Her renal function and BP has been normal. [facility] Surgical History [place] teeth extracted Family History Maternal Grandfather Rheumatoid arthritis Maternal Aunt Ulcerative colitis Father Hypertension Mother Hypertension Social History Household Members: Family Housing: Apartment Alcohol intake: never Patient Tobacco Use Status: Never used Tobacco Current occupational status: student Review of Systems Const All systems reviewed & are unremarkable except as noted in HPI and below Physical Exam Vital Signs: Last Vital Signs Pulse 64 07/16/24 10:54 Pulse Ox 98 07/16/24 10:54 Oxygen Delivery Method Room Air 07/16/24 10:54 BMI result Body Mass Index 22.1 Const General: comfortable and no acute distress Orientation/consciousness: patient oriented x3 HEENT Head: Yes normocephalic Mouth: Normal oral and palatal mucosa present Eyes EOM: EOMs intact bilaterally Neck Neck: Yes supple Resp Auscultation: clear to auscultation bilaterally Cardio Jugular venous distension: no JVD Rate: regular rate GI Palpation (GI): Soft to palpation Auscultation: normal bowel sounds General: Yes no CVA tenderness Back/Spine/Pelvis Back: no CVA tenderness Skin General skin exam: no rashes or lesions noted Neuro General: patient oriented x3 and moves all extremities Extrem General: Yes no pedal edema Results Reviewed Nephrology Results: Hgb 14.1 g/dl (12.0-16.0) 06/30/24 WBC 4.4 X10*3/uL (4.8-10.8) L 06/30/24 Plt Count 272 X10*3/uL (160-400) 06/30/24 Sodium 143 mmol/L (135-145) 04/03/23 Potassium 3.4 mmol/L (3.3-5.1) 04/03/23 Chloride 111 mmol/L (96-108) H 04/03/23 Carbon Dioxide 24 mmol/L (22-29) 04/03/23 BUN 10 mg/dL (9-16) 04/03/23 Creatinine 0.57 mg/dL (0.5-1.4) 04/03/23 Calcium 9.4 mg/dL (8.4-10.2) 04/03/23 Assessment & Plan Assessment & Plan (1) Proteinuria: Code(s): R80.9 - Proteinuria, unspecified Category: Medical Qualifiers: Proteinuria type: other Qualified Code(s): R80.8 - Other proteinuria (2) Systemic lupus erythematosus (SLE) in adult: Comment: Onset summer 2020: Sun sensitive skin rash, arthralgias, positive DsDNA. Prednisone and Plaquenil started. MTX added but changed to azathioprine in fall. March 2022 eye exam okay with respect to hydroxychloroquine toxicity. 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 She never had a renal biopsy. She has been having worsening proteinuria. She had not been on any WEN inhibitor or angiotensin receptor rebecca. I started her on lisinopril 1.25 mg daily to be taken at night. I discussed about different kinds of lupus nephritis and the need for a renal biopsy. We shall get a renal imaging done prior to deciding about renal biopsy. She is on methotrexate as well as folic acid. She does not take excessive nonsteroidal anti-inflammatories for joint pains. She has no edema. Her renal functions are normal. Her blood pressure is at goal. All these have been explained in detail to the patient and her mom. All questions answered. Follow-up appointment given. Orders: Orders Protein Creatinine Ratio, Ur 2 Months R80.8 - Other proteinuria Blood Urea Nitrogen 2 Months R80.8 - Other proteinuria Electrolytes 2 Months R80.8 - Other proteinuria Creatinine 2 Months R80.8 - Other proteinuria Medications: New enalapril maleate Take it at night 1.25 mg (1/2 x 2.5 mg) PO DAILY 90 days 45 tabs 4RF Coding Level of Care Code Est Pt Level 4 (66436) Diagnoses Other proteinuria R80.8 Proteinuria type: other Systemic lupus erythematosus (SLE) in adult M32.9
[2024-07-16 10:54] VITALS: BP 100/70; PULSE 64; O2SAT 98; BMI 22.1
--- OUTSIDE RECORDS SUMMARY | 2024-07-16 11:56 | XMS_ITS | Clinical Summary ---
Author Organization [facility] [place], Address [address] [place] [place] [phone] Phone Care Team Providers Care Cloth Folder Machine Name Role Phone Goldie Melo MD Primary Care Provider [phone] Encounters Date Type Department Care Team Description 06/04/2024 Telephone [facility] [address] [place] [phone] Laura Barrientos MA 05/28/2024 Documentation Only [facility] [address] [place] [phone] Laura Barrientos MA from Last 3 Months [...] B Vaccine Completed 11/30/2003, 2002, [address] [place] [address] Care Teams Cloth Folder Machine Relationship Specialty Start Date End Date Goldie Melo MD [address] [place] [address], [address] [place], [place] [phone] PCP - General Communication Equipment Mechanic 05/28/24
== END 2024-07-16 11:18 | disposition home or self-care (01) ==
LOC: HO.HKA 10:51
PROVIDERS: PCP Student in an Organized Health Care Education/Training Program; Visit Provider Internal Medicine Nephrology
DX: R80.8 Other proteinuria (principal); M32.9 Systemic lupus erythematosus, unspecified
CPT/HCPCS: 99214

== ENCOUNTER 2024-10-08 15:22 | Outpatient (AMB) | payer BC, SELFPAY ==
--- NOTE | 2024-10-08 15:33 | HO.NEPHOV_ITS ---
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 She is known to have systemic lupus erythematosus and is on prednisone as well as methotrexate. She is closely followed up by Rheumatology. She has been having worsening proteinuria over years. She does not have any pedal edema. SLE was diagnosed in 2020 when she developed sun sensitive skin rash, arthralgia and was found to have positive double-stranded DNA. Methotrexate was added after finding azathioprine to be ineffective. She does not have any pedal edema. She denies having hematuria, froth or foam in the urine. She is not hypertensive and her blood pressure has been normal. She never had a renal biopsy in the past. She had a 24 hour urine collection which showed significant protein. Her renal function and BP has been normal. She has been started on enalapril. [facility] Surgical History [place] teeth extracted Family History Maternal Grandfather Rheumatoid arthritis Maternal Aunt Ulcerative colitis Father Hypertension Mother Hypertension Social History Household Members: Family Housing: Apartment Alcohol intake: never Patient Tobacco Use Status: Never used Tobacco Current occupational status: student Review of Systems Const All systems reviewed & are unremarkable except as noted in HPI and below Physical Exam Const General: comfortable and no acute distress Orientation/consciousness: patient oriented x3 HEENT Head: Yes normocephalic Mouth: Normal oral and palatal mucosa present Eyes EOM: EOMs intact bilaterally Neck Neck: Yes supple Resp Auscultation: clear to auscultation bilaterally Cardio Jugular venous distension: no JVD Rate: regular rate GI Palpation (GI): Soft to palpation Auscultation: normal bowel sounds General: Yes no CVA tenderness Back/Spine/Pelvis Back: no CVA tenderness Skin General skin exam: no rashes or lesions noted Neuro General: patient oriented x3 and moves all extremities Extrem General: Yes no pedal edema Results Reviewed Nephrology Results: Hgb, (12.0-16.0) 14.1 g/dl 06/30/24 WBC, (4.8-10.8) 4.4 X10*3/uL L 06/30/24 Plt Count, (160-400) 272 X10*3/uL 06/30/24 Assessment & Plan Assessment & Plan (1) Proteinuria: Code(s): R80.9 - Proteinuria, unspecified Category: Medical Qualifiers: Proteinuria type: other Qualified Code(s): R80.8 - Other proteinuria (2) Long-term use of immunosuppressant medication: Code(s): 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 Prednisone and Plaquenil started. MTX added but changed to azathioprine in fall of 2021. March 2022 eye exam okay with respect to hydroxychloroquine toxicity. 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 She never had a renal biopsy. She has been having worsening proteinuria. She had not been on any WEN inhibitor or angiotensin receptor rebecca. I increased her lisinopril to 2.5 mg daily to be taken at night. I discussed about different kinds of lupus nephritis and the need for a renal biopsy. We shall get a renal imaging done prior to deciding about renal biopsy. She is on methotrexate as well as folic acid. She does not take excessive nonsteroidal anti-inflammatories for joint pains. She has no edema. Her renal functions are normal. Her blood pressure is at goal. All these have been explained in detail to the patient and her mom. All questions answered. Follow-up appointment given Orders: Orders Creatinine 3 Months M32.9 - Systemic lupus erythematosus, unspecified, R80.8 - Other proteinuria, Z79.60 - care home (current) use of unspecified 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 and immunosuppressants Blood Urea Nitrogen 3 Months M32.9 - Systemic lupus erythematosus, unspecified, R80.8 - Other proteinuria, Z79.60 - superintendent marine oil terminal (current) use of unspecified 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 and immunosuppressants Electrolytes 3 Months M32.9 - Systemic lupus erythematosus, unspecified, R80.8 - Other proteinuria, Z79.60 - care home (current) use of unspecified 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 and immunosuppressants Protein Creatinine Ratio, Ur 3 Months M32.9 - Systemic lupus erythematosus, unspecified, R80.8 - Other proteinuria, Z79.60 - care home (current) use of unspecified 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 and immunosuppressants Medications: Changed From enalapril maleate Take it at night 1.25 mg (1/2 x 2.5 mg) PO DAILY 90 days 45 tabs 4RF To enalapril maleate Take it at night 2.5 mg PO DAILY 90 tabs 4RF 90 days Coding Level of Care Code Est Pt Level 4 (34743) Diagnoses Other proteinuria R80.8 Proteinuria type: other Long-term use of immunosuppressant medication Z79.60 Systemic lupus erythematosus (SLE) in adult M32.9
[2024-10-08 15:34] VITALS: BP 118/80; PULSE 99; O2SAT 100; BMI 21.9
--- OUTSIDE RECORDS SUMMARY | 2024-10-08 16:15 | XMS_ITS | Encounter Summary ---
Author Organization [facility] Address [address] [place] [address] Phone Care Team Providers Care Knowledge Management Consultant Name Role Phone Goldie Melo MD Primary Care Provider Encounter Details Date Type Department Care Team (Late st Contact Info) Description 05/28/2024 Documentation Only [facility] [place], [address] [place] [address] Maritza BarrientosAl[place], [place] [address] [place] [phone] Social History Tobacco Use Types [...] on filedocumented in this encounter Care Teams Knowledge Management Consultant Relationship Specialty Start Date End Date Goldie Melo MD [address] [place] [address] [address] [place] [address] PCP - General Mushroom Packer 05/28/24 documented as of this encounter
--- OUTSIDE RECORDS SUMMARY | 2024-10-08 16:16 | XMS_ITS | Clinical Summary ---
Author Organization Formerly [facility] Address [address] [facility] [address] [place] [phone] Phone Care Team Providers Care Technology Support Analyst Name Role Phone Goldie Melo MD Primary Care Provider [phone] Allergies No known active allergies Medications hydrOXYchloroQUINE (PLAQUENIL) 200 mg tablet Take 1 tablet by mouth daily. Taking 10 pills per week 1 Active predniSONE (DELTASONE) 2.5 MG tablet Taking 5mg daily 2 Active calcium carbonate-vitamin D3 600 mg-12.5 mcg (500 unit) Cap Take 1 tablet by mouth 2 (two) times a day with meals. 2 Active SUMAtriptan (IMITREX) 50 MG tabletIndications:M igraine with aura and without status migrainosus, not intractable TAKE 1TAB ONCE NEEDED FOR MIGRAINE.RE PEAT IN 2HRS IF NEED.DONOT EXCEED 2 DOSES/24HR, MAX 200MG/DAY 9 tablet 11 4 Active QULIPTA 60 mg tabletIndications:I ntractable migraine with aura without status migrainosus TAKE 1 TABLET BY MOUTH EVERY DAY 90 tablet 3 5 Active folic acid (FOLVITE) 1 MG tablet Take 1 tablet by mouth every morning. 5 Active methotrexate 2.5 MG Oral tablet TAKE 6 TABS ORALLY EVERY WEEK FOR 90 DAYS 5 Active ondansetron (ZOFRAN-ODT) 4 MG disintegrating tabletIndications:I ntractable migraine with aura without status migrainosus Take 1 tablet (4 mg total) by mouth every 8 (eight) hours as needed for nausea (migraine). 30 tablet 3 5 Active enalapril (VASOTEC) 2.5 MG tablet TAKE ONE-HALF TABLET (1.25 MG TOTAL) BY MOUTH DAILY FOR 90 DAYS. TAKE IT AT NIGHT Active Hospital, Clinic, or Other Facility Administered Medication Ordered Dose Route Frequency Start Date End Date Status medroxyPROGESTERone (DEPO-PROVERA) IM injection 150 mgIndications:Hormone disorder 150 mg IM Every 3 months 01/27/2022 Active medroxyPROGESTERone (DEPO-PROVERA) IM injection 150 mgIndications:Contrace ptive management 150 mg IM Every 3 months 03/12/2024 03/07/2025 Acti ve Active Problems Problem Noted Date Diagnosed Date Gender dysphoria in adult 07/22/2024 Heel pain, bilateral 10/04/2023 Assessment & Plan (10/04/2023 4:45 PM EDT): Valdez presents with bilateral heel pain-going on for years now but getting worse more recently. They have high arches. My concern is for plantar fasciitis. I gave him exercises to start on. I also gave guidance regarding additional symptomatic management at home. I put a referral to podiatry-if this does not improve. They we will call if there are any other issues or concerns. They understand and agree. Achilles tendinitis of right lower extremity Assessment & Plan (10/04/2023 4:45 PM EDT): I diagnosed Valdez with right-sided Achilles tendinitis and I gave him exercises to start on. I also put a referral to podiatry if this does not improve. They will continue with her symptomatic management-I informed them to call if there are any other issues or concerns. They understand and agree. Migraine with aura and witho ut status migrainosus, not intractable 03/09/2022 Assessment & Plan (03/24/2022 11:53 AM EST): Start amitriptyline nightly, warned of r/b and s/e. Continue sumatriptan which is helping! Pt has their own supply of ondansetron which they will take today. Referral placed w [facility] neuro, will also check in w [facility] neuro and take whichever they can see first Tension type headache 06/27/2021 Assessment & Plan (06/27/2021 2:31 PM EDT): W/o red flag symptoms. Doesn't sound migrainous. Sounds tension type. Wants to see how they change after wisdom teeth removed. If no improvement they will let me know and we will address the Has. In the meantime I recommend 1000mg tylenol up to 3x/day as needed, don't take every day. Other forms of systemic lupus erythematosus 10/2021 Overview (05/03/2022): Dr Rayshawn Ho at [facility]: plaquenil/azathioprine (hx of mtx and failed due to s/e). Now on prednisone wean. Subacute cutaneous lupus erythematosus Assessment & Plan (06/27/2021 2:32 PM EDT): This is managed by rheumatology and we reviewed medications today. Generalized anxiety disorder 03/30/2021 Assessment & Plan (06/27/2021 2:35 PM EDT): I suspect Valdez is experiencing a decline in their mental health but will see if it lightens after exams are over. They're having a rough time with feelings of isolation from former friends and not knowing how to make new ones. Recommend discuss w/ therapist strategies for growing their social [place] and maintining the one they've existed in. Hormone disorder 03/30/2021 Assessment & Plan (03/24/2022 11:53 AM EST): Depo is helping mitigate menses though still having them. Will monitor. More tolerable. Assessment & Plan (06/27/2021 2:34 PM EDT): POP is lackluster, but Valdez doesn't want to stop. I recommended depo provera as a more reliable method to stop periods but they'd rather not. Doesn't like idea of injection. Encounters Date Type Department Care Team Description 09/30/2024 12:42 PM EDT - 09/30/2024 11:59 PM EDT Hospital Encounter [facility] [address] [place] [address] [place] [address] Patel Lerma MD Discharge Disposition: Home or Self Care 09/04/2024 1:00 PM EDT Office Visit [facility] [address] [place] [address] Sri Pro PA-C Aftercare following surgery of the skin or subcutaneous tissue (Primary Dx) 08/28/2024 2:45 PM EDT Nurse Only [address] [address] Goldie Melo MD Hormone disorder (Primary Dx) 08/28/2024 Telephone [facility] [address] [place] [address] [place] [address] Rahul Arellano MD Medication Prior Authorization (PA fo QULIPTA 60 mg tablet) 08/05/2024 11:00 AM EDT Office Visit [facility] [address] [place] [address] Sri Pro PA-C Aftercare following surgery of the skin or subcutaneous tissue (Primary Dx); Encounter for removal of sutures 08/01/2024 2:30 PM EDT Telemedicine [facility] [address] [place] [address] [place] [address] Rahul Arellano MD Intractable migraine with aura without status migrainosus (Primary Dx) 07/28/2024 9:30 AM EDT Office Visit [facility] [address] [place] [address] Sri Pro PA-C Aftercare following surgery of the skin or subcutaneous tissue (Primary Dx); Encounter for change or removal of drains 07/22/2024 11:10 AM EDT - 07/22/2024 2:50 PM EDT Surgery OR Admitting Dept - Virtual Department [address] [place] [address] Rob Dominguez MD MASTECTOMY 07/22/2024 10:48 AM EDT Anesthesia Event OR Admitting Dept - Virtual Department [address] [place] [address] Paige Mclaughlin MD 07/22/2024 8:53 AM EDT - 07/22/2024 3:42 PM EDT Hospital Encounter OR Admitting Dept - Virtual Department [address] [place] [address] Rob Dominguez MD Discharge Disposition: Home or Self Care 07/22/2024 Procedure Pass OR Admitting Dept - Virtual Department [address] [place] [address] 07/21/2024 8:30 AM EDT Pre-Admission Testing Pre Procedure Evaluation [address] [place] [address] Rob Dominguez MD 07/21/2024 Orders Only [facility] [address] [place] [phone] Rob Dominguez MD 07/10/2024 11:00 AM EDT Telemedicine - audio only [facility] [address] [address] Sri Pro, BRIJESH Gender dysphoria in adult (Primary Dx) from Last 3 Months Immunizations Immunization Administration Dates Next Due DTaP, unspecified formulation 09/28/2006 ,01/01/2004,02/23/2003,12/31,2002 Hepatitis B, unspecified formulation 11/30/2003, 2002,2002 Hib, unspecified formulation 09/28/2006, 02/23/2003,2002,10/27 Influenza Quadrivalent Prese rvative Free IM 11/10/2019 MMR 08/13/2007,08/31/2003 Meningococcal B, recombinant (MenB-FHbp) 08/04/2020,11/10/2019 Meningococcal MCV4P 10/08/2018 Pneumococcal conjugate PCV20 09/10/2023 Pneumococcal conjugate, PCV 7 01/01/2004 ,02/23/2003,2002,10/27 Polio, Unspecified Formulation 7,02/23/2003,2002,10/27 Tdap 09/06/2022 Varicella 08/13/2007,08/31/2003 Family History Medical History Relation Comments Anxiety disorder Father Headaches Father Hypertension Father Headaches Mother Migraines Mother Relation Status Comments Father Alive Mother Alive Social History Tobacco Use Types Packs/Day Years Used Date Smoking Tobacco: Never Smokeless Tobacco: Never Tobacco Cessation:Counseling Given: Not Answered Alcohol Use Standard Drinks/Week Comments Never 0 (1 standard drink = 0.6 oz pur e alcohol) no Child or Family Care Answer Date Record ed Do you have problems with on e of the following making it difficult for you to work, study, or receive health care? No 09/10/2023 Education Answer Date Recorded Are you interested in more education? Not on kota e 09/10/2023 Are you concerned about your learning, performance, or behavior in school? No 09/10/2023 No 09/10/2023 Yes 09/10/2023 Food Answer Date Recorded Within the past 6 months we worried whether our food would run out before we got money to buy more. Never True 09/10/2023 Within the past 6 months the food we bought just didn't last and we didn't have enough money to get more. Never True Residential Stability Answer Date Recor ded What is your housing situation today? I have james sing 09/10/2023 How many times have you move d in the past 12 months? Zero (I did not move) 09/10/2023 Paying for Meds Answer Date Recorded Do you have trouble paying for medicines? No 09/10/2023 Paying Utility Bills Answer Date Record ed Do you have trouble paying your heating or elect ricity bill? No 09/10/2023 Transportation Answer Date Recorded Has the lack of transportati on kept you from medical appointments or from getting medications? No 09/10/2023 Unemployment Answer Date Recorded Are you currently unemployed or working on a part-time or temporary basis, and looking for work? No 09/10/2023 Digital Access Answer Date Recorded No 09/10/2023 Yes 09/10/2023 Do you have reliable internet access at home? Ye s 09/10/2023 Do you have a device (e.g., phone, tablet, computer) with a working camera? Yes 09/10/2023 Intimate Partner Violence Answer Date R ecorded Denied Basic Needs Not on file 09/10/2023 In the past 12 months have y ou been in a relationship with a person who hurts, threatens, or tries to control you? No 09/10/2023 Worried food would run out Not on file 09/09 In the past 12 months have y ou been in a relationship with a person who hurts, threatens, or tries to control you? No 09/10/2023 Comments No Sex and Gender Information Value Date Recorded Sex Assigned at Female 03/30/2021 2:41 PM EST Legal Sex Female 4:51 AM EST Gender Identity Non-binary 03/30/2021 2:41 PM EST Sexual Orientation Asexual 03/30/2021 2: 41 PM EST Last Filed Vital Signs Vital Sign Reading Time Taken Comments Blood Pressure 128/75 07/22/2024 3:13 PM EDT Pulse 95 07/22/2024 3:13 PM EDT Temperature 36.5 C (97.7 F) 07/22/2024 3:13 PM EDT Respiratory Rate 16 07/22/2024 3:13 PM EDT Oxygen Saturation 98% 07/22/2024 3:13 PM EDT Inhaled Oxygen Concentration - - Weight 54.4 kg (120 lb) 07/15/2024 11:30 AM EDT Height 154.9 cm (5' 1 ) 07/15/2024 11:30 AM EDT Body Mass Index 22.67 07/15/2024 11:30 AM EDT Plan of Treatment Upcoming Encounters Date Type Department Care Team (Late st Contact Info) Description 10/21/2024 1:30 PM EDT Office Visit [facility] [address] [place] [phone] Sri Pro PA-C [address] [place] [address], [address] [address] 11/27/2024 1:45 PM EDT Nurse Only [address] [place] [address] Goldie Melo MD [address] [facility], [address] [place] [address] Health Maintenance Due Date Last Done Comments HPV VACCINES (1 - 3-dose series) 2017 CHLAMYDIA SCREENING 2018 HEPATITIS C SCREENING 2020 HIV ONE-TIME SCREENING (18-65 YEARS) 2020 PAP SMEAR 08/16/2023 DEPRESSION SCREENING 09/09/2024 09/10/2023 COVID-19 VACCINE (5 - Pfizer risk 2023- season) 2024 03/14/2024, 10/21/2020, 07/01/2020, Additional history exists SMOKING Hx and SMOKELESS TOBACCO SCREENING 07/28/2025 07/28/2024 CREATININE LEVEL 09/30/2025 09/30/2024, 04/2024, 2023, Additional history exists POTASSIUM LEVEL 09/30/2025 09/30/2024, 04/2024, 2023, Additional history exists Adult Td,Tdap Booster 09/06/2032 09/06/2022 HIB VACCINES Completed 09/28/2006, 06/2003, 2002, Additional history exists MENINGOCOCCAL VACCINES (ACWY) Completed 10/08/2018 MENINGOCOCCAL VACCINES (B) Completed 08/04/2020, PNEUMOCOCCAL VACCINES (0-49 years) Completed 09/10/2023, 01/01/2004, 02/23/2003, Additional history exists HEPATITIS A VACCINES Aged Out No long er eligible based on patient's age to complete this topic Medical Devices Not on file Procedures Procedure Name Priority Date/Time Associated Diagnosis Comments TOTAL PROTEIN CREATININE RATIO, RANDOM URINE Routine 09/30/2024 1:02 PM EDT Other proteinuria BUN Routine 09/30/2024 12:49 PM EDT Other proteinuria ELECTROLYTES Routine 09/30/2024 12:49 PM EDT Other proteinuria CREATININE/EGFR Routine 09/30/2024 12:49 PM EDT Other proteinuria AIRWAY PLACEMENT Routine 07/22/2024 11:0 3 AM EDT OH NIPPLE/AREOLA RECONSTRUCTION 07/22/2024 10:48 AM EDT Gender dysphoria OH MASTECTOMY, SIMPLE, COMPLETE 07/22/2024 10:48 AM EDT Gender dysphoria [place] ANESTHESIA PERIPHERAL BLOCK PLACEHOLDER Routine 07/22/2024 10:36 AM EDT ANATOMIC PATHOLOGY Routine 07/22/2024 12 :00 AM EDT from Last 3 Months Results * (ABNORMAL) TOTAL PROTEIN CREATININE RATIO, RANDOM URINE (09/30/2024 1:02 PM EDT) URINE TOTAL PROTEIN 12.0 mg/dL [facility] URINE CREATININE 25 mg/dL [facility] URINE TP CRE RATIO 0.48(H) 0 - 0.19 [facility] Urine (Urine) 09/30/2024 1:0 2 PM EDT 09/30/2024 1:05 PM EDT us Patel Lerma MD URINE ORDERABLES Final Result [address] [address] * Creatinine/eGFR (09/30/2024 12:49 PM EDT) CREATININE 0.50 0.5 - 1.5 mg/dL [facility] EGFR >120 >59 mL/min/1.7 3m2 [facility] Comment:Estimated glomerular filtration rate calculated using the CKD-EPI refit equation. Blood 09/30/2024 12:4 9 PM EDT 09/30/2024 12:52 PM EDT Patel Lerma MD LAB BLOOD ORDERAB LES Final Result Performing Organization Address City/[facility]/ZIP Co de Phone Number [address] [address] * BUN (09/30/2024 12:49 PM EDT) BUN 6 6 - 19 mg/dL [facility] Blood 09/30/2024 12:4 9 PM EDT 09/30/2024 12:52 PM EDT us Patel Lerma MD LAB BLOOD ORDERAB LES Final Result Performing Organization Address [facility]/ZIP Co de Phone Number [address] [address] * Electrolytes (09/30/2024 12:49 PM EDT) SODIUM 140 133 - 146 mmol/L [facility] POTASSIUM 3.8 3.3 - 5.1 mmol/L [facility] CHLORIDE 106 96 - 108 mmol/L [facility] CO2 22 21 - 35 mmol/L [facility] ANION GAP 16 10 - 20 mmol/L [facility] Blood 09/30/2024 12:4 9 PM EDT 09/30/2024 12:52 PM EDT us Patel Lerma MD LAB BLOOD ORDERAB LES Final Result Performing Organization Address [facility]/ZIP Co de Phone Number [address] [address] * ANES ETT DOUBLE LUMEN - AIRWAY LDA (07/22/2024 11:03 AM EDT) Narrative Lanie Curry CRNA - 07/22/2024 11:03 AM EDT Lanie Curry CRNA 07/22/2024 11:56 AM Airway Placement Procedure Note: Patient was not difficult to intubate. Procedure performed by: fellow/resident/RELISH BLENDER Anesthesiologist: Paige Mclaughlin MD Fellow/Resident/RELISH BLENDER: Lanie Curry CRNA Airway procedure initiated at:07/22/2024 11:03 AM and ended at. Personal Protective Equipment: Mask: surgical mask Eye Protection: eye shield Gloves: double gloves Gown: no gown Mask Ventilation: Quality: easy Airway Placement: Technique: direct laryngoscopy Rapid sequence induction: no Details: Blade type: Mac Blade size: 3 Direct view: grade 2 Number of attempts: 2 ETT type: cuffed ETT size: 6.5 ETT depth at teeth: 20 ETT cuff inflation volume: 6 Tube position confirmed by: bilateral breath sounds and EtCO2 Outcomes: Evidence of dental injury? no Complications observed? no us Paige Mclaughlin MD [place] ANESTHESIA Final Resu lt * [place] ANESTHESIA PERIPHERAL BLOCK PLACEHOLDER (07/22/2024 10:36 AM EDT) Narrative Lanie Curry CRNA - 07/22/2024 10:36 AM EDT Lanie Curry CRNA 07/22/2024 11:59 AM Peripheral Block Placement Procedure Note: Start Time: 07/22/2024 10:36 AM Stop Time:07/22/2024 10:45 AM Reason for block: surgeon request and post op pain managment Block performed by: fellow/resident/RELISH BLENDER Anesthesiologist: Paige Mclaughlin MD Fellow/Resident/RELISH BLENDER: Lanie Curry CRNA [place] Protocol Performed: consent obtained, patient identified with 2 identifiers, correct procedure verified, correct site and laterality confirmed, verified equipment, coagulation status reviewed and implant history reviewed. Procedure Details: ASA monitors applied during procedure and vitals signs recorded in nursing flowsheet during procedure. Block type: single shot Laterality: bilateral Block location: trunk and PECS II and PECS I Patient position: supine Prep: chloraprep Image guidance: ultrasound guidance Ultrasound image: not saved Needle visualization: good and in-plane Block Technique Block technique: landmark technique and ultrasound guided non-stimulating needle used Needle gauge: 22 Injection assessment:incremental injection and negative aspiration for heme Needle length: 5cm Post Block Placement Assessment Complications Observed: No us Paige Mclaughlin MD [place] ANESTHESIA Final Resu lt * Anatomic Pathology (07/22/2024 12:00 AM EDT) 07/22/2024 07/22/2024 3:0 7 PM EDT Narrative SEE NARRATIVE - 07/23/2024 3:31 PM EDT [address] [address] Laboratory Associate: Garrison Mcdonald MD Surgical Pathology Report FINAL PATHOLOGIC DIAGNOSIS: A. LEFT BREAST TISSUE: Benign breast tissue and unremarkable nipple (367 grams) B. RIGHT BREAST TISSUE: Benign breast tissue and unremarkable nipple (373 grams) Electronically Signed Out By Linette Hughes MD By his/her signature above, the pathologist listed as making the Final Diagnosis certifies that he/she has personally reviewed this case and confirmed or corrected the diagnosis. CLINICAL HISTORY Gender dysphoria SPECIMENS SUBMITTED: A: LEFT BREAST TISSUE B: RIGHT BREAST TISSUE GROSS DESCRIPTION A. LEFT BREAST TISSUE: Received in formalin is a 367 g, 14.5 x 14.3 x 5.2 cm unoriented simple mastectomy which is partially surfaced by a 15.7 x 8.0 cm ellipse of sarmiento skin which exhibits a 1.0 x 1.0 x 0.5 cm everted nipple. The nipple areolar complex and skin surfaces are grossly unremarkable. Serial sectioning reveals grossly unremarkable, fibrofatty breast tissue. A discrete mass is not grossly appreciated. Technical Director sections are submitted in cassettes A1-A2 with cassette A1 additionally containing a perpendicular hardware supplies sales representative section of nipple and skin. B. RIGHT BREAST TISSUE: Received in formalin is a 373 g, 16.2 x 14.7 x 5.6 cm unoriented simple mastectomy which is partially surfaced by a 16.0 x 8.4 cm ellipse of sarmiento skin which exhibits a 1.0 x 1.0 x 0.4 cm everted nipple with surrounding areola. The areola exhibits 2 circular surgical defects averaging 1.9 cm in diameter. Serial sectioning reveals grossly unremarkable, fibrofatty breast tissue. A discrete mass is not grossly appreciated. Technical Director sections are submitted in cassettes B1-B2 with cassette B2 additionally containing a perpendicular hardware supplies sales representative section of nipple and adjacent areolar defects. Grossed by: VINCE Elizondo, PA(ASCP) [id number] 07/22/2024 Grossing Staff: [id number] Patient Name: VALDEZ CAMPBELL : 2000 (Age: 23) Sex: F [facility] Date of Operation: 07/22/2024 Date of Reported: 07/23/2024 15:31 Results To: Rob Dominguez MD, BA Goldie Garcia MD us Rob Dominguez MD PATHOLOGY ORDERABLES Final Resul t SEE NARRATIVE from Last 3 Months Insurance [employer] OUT OF [facility] PPO Fly [employer] OUT OF [facility]PO [facility] [place] Sofy [facility] [address] [facility] [address] [facility] OUT [facility] [place] [address] [facility] [place] [address] Advance Directives For more information, please contact: [phone] (9AM - 5PM [place]/[facility], Sunday-Sunday) * Full Code (Latest Code Status on File) Date Activated Date Inactivated Comments 07/22/2024 8:56 AM Question Answer Comments Code Status Confirmed With: Other (specify below ) Code Discussion Comments: periop Care Teams Technology Support Analyst Relationship Specialty Start Date End Date Goldie Melo MD [address] [place] [address], [address] [place] [address] [email or web address] PCP - General Family Medicine 04/06/22 Additional Source Comments The information contained in this document represents components of the legal health record. It is not the complete legal health record.[facility]
== END 2024-10-08 15:49 | disposition home or self-care (01) ==
LOC: HO.HKA 15:23
PROVIDERS: PCP Student in an Organized Health Care Education/Training Program; Visit Provider Internal Medicine Nephrology
DX: R80.8 Other proteinuria (principal); Z79.60 Long term (current) use of unspecified 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 and immunosuppressants; M32.9 Systemic lupus erythematosus, unspecified
CPT/HCPCS: 99214

== ENCOUNTER 2024-12-05 08:27 | Outpatient (AMB) | payer BC, SELFPAY ==
--- NOTE | 2024-12-05 08:30 | A.OFFVIS_ITS ---
Vital Signs 12/05/24 08:41 Height 5 ft 2 in Weight 122 lb 5.705 oz BMI 22.4 BP 112/80 Blood Pressure Location Lt brachial Position Sitting Pulse 107 H Pulse Source Pulse Oximeter Pulse Oximetry (%) 98 Oxygen Delivery Method Room Air Intake Visit Reasons: SLE Intake Note: Patient presents for SLE follow up. Allergies No Known Allergies Allergy (Verified 12/05/24 08:35) Medication List - Last Reconciled 12/05/24 by Angela Leahy MD atogepant (Qulipta) 60 mg PO DAILY calcium carbonate-vitamin D3 600 mg-12.5 mcg (500 unit) caps PO enalapril maleate 2.5 mg PO DAILY 90 days folic acid 1 mg PO DAILY hydroxychloroquine 400 mg x 3 days a week, 200 mg x 4 days a week methotrexate sodium 15 mg (6 x 2.5 mg) PO QWEEK 90 days norethindrone (contraceptive) 0.35 mg PO DAILY prednisone 5 - 10 mg (1 - 2 x 5 mg) PO DAILY sumatriptan succinate 50 mg PO PRN HPI Comments Details: Patient is a 24-year-old female with migraine headache and lupus here today for follow up Interval History: Patient last seen 04/30/2024 - On prednisone 5mg, azathioprine 150mg, Hydroxychloroquine 400 mg 3 days a week and 200 mg 4 days a week - Patient is reporting more episodes of joint pain, worsening fatigue, intermittent rashes as well as oral ulcers. - Stopped azathioprine and started methotrexate due to increased lupus activity Today - On methotrexate 15mg weekly, folic acid 1mg daily, Hydroxychloroquine 400 mg 3 days a week and 200 mg 4 days a week - Doing better with her joints - No side effects from the methotrexate - No alopecia, no oral/nasal ulcers, no rashes Rheumatologic History: SLE Onset summer 2020: Sun sensitive skin rash, arthralgias, positive DsDNA. Prednisone and Plaquenil started. MTX added but changed to azathioprine in fall. March 2022 eye exam okay with respect to hydroxychloroquine toxicity. Current Rheumatology Medication(s): Prednisone 5 mg Methotrexate 15mg weekty Folic acid 1 mg daily Hydroxychloroquine 400 mg 3 days a week and 200 mg 4 days a week PFS Surgical History [place] teeth extracted Family History Maternal Grandfather Rheumatoid arthritis Maternal Aunt Ulcerative colitis Father Hypertension Mother Hypertension Social History Household Members: Family Housing: Apartment Alcohol intake: never Patient Tobacco Use Status: Never used Tobacco Current occupational status: student Review of Systems Const Details: Review of Systems Constitutional: Denies fever, chills, weight loss ENT: Denies vision changes, eye pain or eye redness, dental caries, dry mouth GI: Denies nausea, vomiting, diarrhea, abdominal pain, change in BM Pulm: Denies SOB, WAGNER, hemoptysis, wheezing Cards: Denies chest pain, palpitations Skin: Denies Raynaud's, rash, nail changes, photosensitivity, LACQUER SIZER: Denies headaches, weakness, paresthesias, recurrent falls MSK: as per HPI All other systems reviewed and are unremarkable except noted above Physical Exam Exam Exam: Vital signs reviewed Physical Examination CONSTITUITIONAL Patient alert and cooperative. Well appearing and in no apparent painful distress MSK Hands * Right Hand: Able to make a fist. No swelling or tenderness to palpation of the MCPs, PIPs or DIPs. No deformities noted. * Left Hand: Able to make a fist. No swelling or tenderness to palpation of the MCPs, PIPs or DIPs. No deformities noted. Wrists * Right Wrist: Full ROM to flexion and extension. No swelling or TTP * Left Wrist: Full ROM to flexion and extension. No swelling or TTP Elbows * Right Elbow: Full ROM. No swelling or TTP. No TTP of the medial epicondyle. No TTP of the lateral epicondyle * Left Elbow: Full ROM. No swelling or TTP. No TTP of the medial epicondyle. No TTP of the lateral epicondyle Shoulders * Right shoulder: Full ROM. No swelling noted. No TTP of the AC joint. No TTP of the subacromial bursa. No TTP of the posterior shoulder * Left shoulder: Full ROM. No swelling noted. No TTP of the AC joint. No TTP of the subacromial bursa. No TTP of the posterior shoulder Knees * Right knee: Full ROM. No swelling noted. No TTP of the knee joint line. No TTP of pes anserine bursa * Left knee: Full ROM. No swelling noted. No TTP of the knee joint line. No TTP of pes anserine bursa. Ankles * Right ankle: Good ankle dorsiflexion and plantar flexion. No swelling. No TTP of the ankle joint * Left ankle: Good ankle dorsiflexion and plantar flexion. No swelling. No TTP of the ankle joint Feet * Right foot: Negative squeeze test * Left foot: Negative squeeze test Tender points? * No tenderness to palpation of the bilateral trapezius, supraspinatus, anterior costochondral junctions, bilateral suboccipital muscle insertions SKIN No rashes Vital Signs: Last Vital Signs Pulse 107 H 12/05/24 08:41 BP 112/80 12/05/24 08:41 Pulse Ox 98 12/05/24 08:41 Oxygen Delivery Method Room Air 12/05/24 08:41 BMI result Body Mass Index 22.4 Results Reviewed Results Reviewed: 11/26/2024 Leigh WBC 4.81 Hb 12.6 Plt 273 BUN 7 Cr 0.60 eGFR >120 AST 17 ALT 17 C3 89 C4 10 L dsDNA +ve ESR 14 CRP <3 Assessment & Plan Assessment & Plan (1) Systemic lupus erythematosus (SLE) in adult: Comment: Onset summer 2020: Sun sensitive skin rash, arthralgias, positive DsDNA. Prednisone and Plaquenil started. MTX added but changed to azathioprine in fall. March 2022 eye exam okay with respect to hydroxychloroquine toxicity. AZA ineffective 04/2024 Mtx restarted 04/2024 Code(s): M32.9 - Systemic lupus erythematosus, unspecified Category: Medical Plan: #SLE Patient is a 24-year-old gender neutral person with lupus. Doing better on methotrexate without side effects. LFTs normal Will try tapering prednisone Plan - Mtx 15mg weekly - Folic acid 1 mg daily - Continue plaquenil 400mg 3 days a week and 200mg 4 days a week - Prednisone 5mg alternating with 2.5mg - RTC 4 months - Labs before visit: CBC, CMP, ESR, CRP, C3, C4, dsDNA, UA, UPC (2) Long-term use of hydroxychloroquine: Comment: Eye exam okay 03/2022 Code(s): Z79.899 - Other long-term (current) drug therapy Category: Medical Plan: #Long-term Use of Hydroxychloroquine Discussed with patient the risks and benefits of hydroxychloroquine in managing the rheumatic condition Benefits include: - Reduced pain, reduce mortality, maintenance of remission and reduction of flares Risks include: - GI upset, skin hyperpigmentation, retinal toxicity (especially after more than 5 years of use), myopathy Advised yearly ophthalmology visits (3) Encounter for methotrexate monitoring: Code(s): Z51.81 - Encounter for therapeutic drug level monitoring; Z79.631 - terminal system operator (current) use of antimetabolite agent Plan: #Long-term Current Use of Methotrexate Discussed with patient the benefits and risks of methotrexate for managing their rheumatic condition Benefits include reduced pain, reduced mortality, maintenance of remission and reduction of flares Risks include oral ulcers, photosensitivity, hepatotoxicity, hematologic toxicity, pneumonitis, flu-like symptoms (especially day after administration), nodulosis, lymphomas ? Limit alcohol and avoid Bactrim ? Monitoring: ?CBC, BMP, LFTs every 3-4 months and hepatitis serologies as needed ? Methotrexate is teratogenic. ?If planning need to discontinue 3 months prior to conception Plan I spent 30minutes reviewing the record and labs, taking a history, examining the patient, discussing the treatment plan, ordering diagnostic work up and documenting in the medical record Orders: Orders Complete Blood Count Auto Diff 4 Months . - Systemic lupus erythematosus, unspecified Comprehensive Met. Panel 4 Months . - Systemic lupus erythematosus, unspecified Erythrocyte Sedimentation Rate 4 Months . - Systemic lupus erythematosus, unspecified C Reactive Protein 4 Months . - Systemic lupus erythematosus, unspecified UA ClnCatch+Micro w/rflx Cult 4 Months . - Systemic lupus erythematosus, unspecified Anti DNA DS Antibody 4 Months . - Systemic lupus erythematosus, unspecified Complement C4 4 Months . - Systemic lupus erythematosus, unspecified Complement C3 4 Months . - Systemic lupus erythematosus, unspecified Protein Creatinine Ratio, Ur 4 Months . - Systemic lupus erythematosus, unspecified Medications: Changed From prednisone 5 - 10 mg (1 - 2 x 5 mg) PO DAILY 40 tabs 3RF M32.9 - Systemic lupus erythematosus, unspecified To prednisone 2.5 - 5 mg (0.5 - 1 x 5 mg) PO DAILY 90 tabs 1RF M32.9 - Systemic lupus erythematosus, unspecified Refilled methotrexate sodium 15 mg (6 x 2.5 mg) PO QWEEK 78 tabs 1RF 90 days M32.9 - Systemic lupus erythematosus, unspecified hydroxychloroquine 400 mg x 3 days a week, 200 mg x 4 days a week 120 tabs 1RF M32.9 - Systemic lupus erythematosus, unspecified Coding Level of Care Code Est Pt Level 4 (48028) Complex EM visit Add On G2211 Diagnoses Systemic lupus erythematosus (SLE) in adult M32.9 Long-term use of hydroxychloroquine Z79.899 Encounter for methotrexate monitoring Z51.81; Z79.631
[2024-12-05 08:41] VITALS: BP 112/80; PULSE 107; O2SAT 98; BMI 22.4
== END 2024-12-05 09:17 | disposition home or self-care (01) ==
LOC: HO.RHES 08:28
PROVIDERS: PCP Student in an Organized Health Care Education/Training Program; Visit Provider Student in an Organized Health Care Education/Training Program
DX: M32.9 Systemic lupus erythematosus, unspecified (principal); Z79.899 Other long term (current) drug therapy; Z51.81 Encounter for therapeutic drug level monitoring; Z79.631 Long term (current) use of antimetabolite agent
CPT/HCPCS: 99214

== ENCOUNTER 2025-01-21 15:47 | Outpatient (AMB) | payer BC, SELFPAY ==
--- NOTE | 2025-01-21 15:57 | HO.NEPHOV_ITS ---
Vital Signs 01/21/25 15:58 Height 5 ft 2 in Weight 122 lb 6 oz BMI 22.4 BP 108/70 Blood Pressure Location Lt brachial Position Sitting Pulse 101 H Pulse Source Pulse Oximeter Pulse Oximetry (%) 96 Oxygen Delivery Method Room Air Intake Visit Reasons: 3 MO FU-LVM Leadership Program Associate Required: No Accompanied by: Father Allergies No Known Allergies Allergy (Verified 01/21/25 15:58) HPI Comments Details: I had the pleasure of seeing Valdez in follow up for proteinuria. She is known to have systemic lupus erythematosus and is on prednisone as well as methotrexate. She is closely followed up by Rheumatology. She has been having worsening proteinuria over years. She does not have any pedal edema. SLE was diagnosed in 2020 when she developed sun sensitive skin rash, arthralgia and was found to have positive double-stranded DNA. Methotrexate was added after finding azathi oprine to be ineffective. She does not have any pedal edema. She denies having hematuria, froth or foam in the urine. She is not hypertensive and her blood pressure has been normal. She never had a renal biopsy in the past. She had a 24 hour urine collection which showed significant protein. Her renal function and BP has been normal. She has been started on enalapril with improvement in protein PFSH Surgical History [place] teeth extracted Family History Maternal Grandfather Rheumatoid arthritis Maternal Aunt Ulcerative colitis Father Hypertension Mother Hypertension Social History Household Members: Family Housing: Apartment Alcohol intake: never Patient Tobacco Use Status: Never used Tobacco Current occupational status: student Review of Systems Const All systems reviewed & are unremarkable except as noted in HPI and below Physical Exam Vital Signs: Last Vital Signs Pulse 101 H 01/21/25 15:58 BP 108/70 01/21/25 15:58 Pulse Ox 96 01/21/25 15:58 Oxygen Delivery Method Room Air 01/21/25 15:58 BMI result Body Mass Index 22.4 Const General: comfortable and no acute distress Orientation/consciousness: patient oriented x3 HEENT Head: Yes normocephalic Mouth: Normal oral and palatal mucosa present Eyes EOM: EOMs intact bilaterally Neck Neck: Yes supple Resp Auscultation: clear to auscultation bilaterally Cardio Jugular venous distension: no JVD Rate: regular rate GI Palpation (GI): Soft to palpation Auscultation: normal bowel sounds General: Yes no CVA tenderness Back/Spine/Pelvis Back: no CVA tenderness Skin General skin exam: no rashes or lesions noted Neuro General: patient oriented x3 and moves all extremities Extrem General: Yes no pedal edema Results Reviewed Nephrology Results: Hgb, (12.0-16.0) 14.1 g/dl 06/30/24 WBC, (4.8-10.8) 4.4 X10*3/uL L 06/30/24 Plt Count, (160-400) 272 X10*3/uL 06/30/24 Assessment & Plan Assessment & Plan (1) Long-term use of immunosuppressant medication: Code(s): Z79.60 - longterm (current) use of unspecified 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 and immunosuppressants Category: Medical (2) Proteinuria: Code(s): R80.9 - Proteinuria, unspecified Category: Medical Qualifiers: Proteinuria type: other Qualified Code(s): R80.8 - Other proteinuria (3) Systemic lupus erythematosus (SLE) in adult: Comment: Onset summer 2020: Sun sensitive skin rash, arthralgias, positive DsDNA. Prednisone and Plaquenil started. MTX added but changed to azathioprine in fall of 2021. March 2022 eye exam okay with respect to hydroxychloroquine toxicity. 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 She never had a renal biopsy. Her proteinuria is better . She can continue lisinopril 2.5 mg daily to be taken at night. I discussed about different kinds of lupus nephritis and the need for a renal biopsy( not now but if needed). She is on methotrexate as well as folic acid. She does not take excessive nonsteroidal anti-inflammatories for joint pains. She has no edema. Her renal functions are normal. Her blood pressure is at goal. All questions answered. Follow-up appointment given Orders: Orders Creatinine 6 Months M32.9 - Systemic lupus erythematosus, unspecified, R80.8 - Other proteinuria Blood Urea Nitrogen 6 Months M32.9 - Systemic lupus erythematosus, unspecified, R80.8 - Other proteinuria Electrolytes 6 Months M32.9 - Systemic lupus erythematosus, unspecified, R80.8 - Other proteinuria Protein Creatinine Ratio, Ur 6 Months M32.9 - Systemic lupus erythematosus, unspecified, R80.8 - Other proteinuria Medications: Refilled enalapril maleate Take it at night 2.5 mg PO DAILY 90 tabs 4RF 90 days Coding Level of Care Code Est Pt Level 4 (39974) Diagnoses Long-term use of immunosuppressant medication Z79.60 Other proteinuria R80.8 Proteinuria type: other Systemic lupus erythematosus (SLE) in adult M32.9
[2025-01-21 15:58] VITALS: BP 108/70; PULSE 101; O2SAT 96; BMI 22.4
--- OUTSIDE RECORDS SUMMARY | 2025-01-21 18:41 | XMS_ITS | Clinical Summary ---
Author Organization [facility] Address [address] [facility] [address] [place] [phone] Phone Care Team Providers Care Meat Stringer Name Role Phone Goldie Melo MD Primary Care Provider [phone] Allergies No known active allergies Medications hydrOXYchloroQUINE [...] FOR 90 DAYS. TAKE IT AT NIGHT 5 Active predniSONE (DELTASONE) 5 MG tablet Take 5-10 mg by mouth daily. Active Hospital, Clinic, or Other Facility Administered Medication Ordered Dose Route Frequency Start Date End Date Status medroxyPROGESTERone (DEPO-PROVERA) IM injection 150 mgIndications:Hormone disorder 150 mg IM Every 3 months 01/27/2022 Active medroxyPROGESTERone (DEPO-PROVERA) IM injection 150 mgIndications:Contrace ptive management 150 mg IM Every 3 months 03/12/2024 03/07/2025 Acti ve medroxyPROGESTERone (DEPO-PROVERA) IM injection 150 mgIndications:Hormone disorder 150 mg IM Every 3 months 02/23/2025 11/19/2025 Active Active Problems Problem Noted Date Diagnosed Date [...] they will take today. Referral placed w [facility] neuro, will also check in w [facility] neuro and take whichever they can see [...] 10/2021 Overview (05/03/2022): Dr Rayshawn Ho at [facility]: plaquenil/azathioprine (hx of mtx and failed due [...] w/ therapist strategies for growing their social [place] and maintining the one they've existed in. 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; Systemic lupus erythematosus, unspecified SLE type, unspecified organ involvement status 11/27/2024 1:45 PM EDT Nurse Only [address] [address] Goldie Melo MD Hormone disorder (Primary Dx) 11/26/2024 4:16 PM EDT - 11/26/2024 11:59 PM EDT Hospital Encounter [address] [place] [address] Agnela Leahy MD Discharge Disposition: Home or Self Care 11/26/2024 Transcribe Orders [address] [place] [address] Angela Leahy MD Systemic lupus erythematosus, unspecified SLE type, unspecified organ involvement status (Primary Dx); Need for hepatitis B screening test; Need for hepatitis C screening test; senior living (current) use of unspecified 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 and immunosuppressants from Last 3 Months Immunizations Immunization Administration [...] 2:41 PM EST Sexual Orientation Asexual 03/30/2021 2 :41 PM EST Last Filed Vital Signs Vital Sign Reading Time Taken Comments Blood Pressure 126/89 10/21/2024 1:20 PM EDT Pulse 80 10/21/2024 1:20 PM EDT Temperature 36.5 C (97.7 F) 07/22/2024 3:13 PM EDT Respiratory Rate 16 07/22/2024 3:13 PM EDT Oxygen Saturation 98% 07/22/2024 3:13 PM EDT Inhaled Oxygen Concentration - - Weight 53.7 kg (118 lb 6.4 oz) 10/21/2024 1:20 P M EDT Height 157.5 cm (5' 2 ) 10/21/2024 1:20 PM EDT Body Mass Index 21.66 10/21/2024 1:20 PM EDT Plan of Treatment Upcoming Encounters Date Type Department Care Team (Late st Contact Info) Description 02/27/2025 1:45 PM EST Nurse Only Lu [facility] [address] [place] [address] Goldie Melo MD [address] [place] [address], [address] [place] [address] [email or web address] Health Maintenance Due Date Last Done Comments HPV VACCINES (1 - 3-dose series) 2017 CHLAMYDIA SCREENING 2018 HIV ONE-TIME SCREENING (18-6 5 YEARS) 2020 PAP SMEAR 08/16/2023 DEPRESSION SCREENING 09/09/2024 09/10/2023 INFLUENZA VACCINE (#1) 2024 11/10/2019 COVID-19 VACCINE (2024-2 6 season) 2024 03/14/2024, 10/21/2020, 07/01/2020, Additional history exists SMOKING Hx and SMOKELESS TOB ACCO SCREENING 07/28/2025 07/28/2024 CREATININE LEVEL 11/26/2025 11/26/2024, 01/2025, 04/21/2024, Additional history exists POTASSIUM LEVEL 01/13/2026 01/13/2025, 09/2024, 09/30/2024, Additional history exists Adult Td,Tdap Booster 09/06/2032 09/06/2022 HIB VACCINES Completed 09/28/2006, 06/2003, 2002, Additional history exists MENINGOCOCCAL VACCINES (ACWY) Completed 10/08/2018 MENINGOCOCCAL VACCINES (B) Completed 08/04/2020, PNEUMOCOCCAL VACCINES (0-49 years) Completed 09/10/2023, 01/01/2004, 02/23/2003, Additional history exists HEPATITIS C SCREENING Completed 11/26/2024 , 11/26/2024, 11/26/2024 Medical Devices Not on file Procedures Procedure Name Priority Date/Time Associated Diagnosis Comments TOTAL PROTEIN CREATININE RATIO, RANDOM URINE Routine 01/13/2025 3:00 PM EST Other proteinuria senior living (current) use of unspecified 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 and immunosuppressants Systemic lupus erythematosus, unspecified SLE type, unspecified organ involvement status ELECTROLYTES Routine 01/13/2025 2:44 PM EST Other proteinuria senior living (current) use of unspecified 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 and immunosuppressants Systemic lupus erythematosus, unspecified SLE type, unspecified organ involvement status BUN Routine 01/13/2025 2:44 PM EST Other proteinuria senior living (current) use of unspecified 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 and immunosuppressants Systemic lupus erythematosus, unspecified SLE type, unspecified organ involvement status CREATINE KINASE (CK) Routine 01/13/2025 2:44 PM EST 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 Systemic lupus erythematosus, unspecified SLE type, unspecified organ involvement status DOUBLE STRANDED DNA ANTIBODIES Routine 11/26/2024 4:39 PM EDT Systemic lupus erythematosus, unspecified SLE type, unspecified organ involvement status senior living (current) use of unspecified 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 and immunosuppressants C-REACTIVE PROTEIN (CRP) Routine 11/26/2024 4:39 PM EDT Systemic lupus erythematosus, unspecified SLE type, unspecified organ involvement status 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 and immunosuppressants COMPLEMENT C3 Routine 11/26/2024 4:39 PM EDT Systemic lupus erythematosus, unspecified SLE type, unspecified organ involvement status 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 and immunosuppressants COMPLEMENT C4 Routine 11/26/2024 4:39 PM EDT Systemic lupus erythematosus, unspecified SLE type, unspecified organ involvement status senior living (current) use of unspecified 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 and immunosuppressants CBC AND DIFFERENTIAL Routine 11/26/2024 4:39 PM EDT Systemic lupus erythematosus, unspecified SLE type, unspecified organ involvement status senior living (current) use of unspecified 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 and immunosuppressants COMPREHENSIVE METABOLIC PANEL (CMP) Routine 11/26/2024 4:39 PM EDT Systemic lupus erythematosus, unspecified SLE type, unspecified organ involvement status senior living (current) use of unspecified 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 and immunosuppressants SEDIMENTATION RATE (ESR) Routine 11/26/2024 4:39 PM EDT Systemic lupus erythematosus, unspecified SLE type, unspecified organ involvement status senior living (current) use of unspecified 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 and immunosuppressants TOTAL PROTEIN CREATININE RATIO, RANDOM URINE Routine 11/26/2024 4:39 PM EDT Systemic lupus erythematosus, unspecified SLE type, unspecified organ involvement status 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 and immunosuppressants URINALYSIS WITH SEDIMENT Routine 11/26/2024 4:39 PM EDT Systemic lupus erythematosus, unspecified SLE type, unspecified organ involvement status senior living (current) use of unspecified 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 and immunosuppressants HEPATITIS A ANTIBODY, IGM Routine 11/26/2024 4:39 PM EDT HEPATITIS A ANTIBODY, TOTAL Routine 11/26/2024 4:39 PM EDT Systemic lupus erythematosus, unspecified SLE type, unspecified organ involvement status senior living (current) use of unspecified 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 and immunosuppressants HEPATITIS B CORE ANTIBODY, TOTAL Routine 11/26/2024 4:39 PM EDT Need for hepatitis B screening test HEPATITIS C ANTIBODY, QUALITATIVE Routine 11/26/2024 4:39 PM EDT Need for hepatitis C screening test from Last 3 Months Results * (ABNORMAL) Protein/Creatinine Ratio, Random Urine, Total (01/13/2025 3:00 PM EST) Only the most recent of2 resultswithin the time period is included. Total Protein/Creatinine Ratio, Urine 0.25(H) <0.15 01/13/2025 7:40 PM [facility] Comment:Ratios <0.2 reflect insignificant protein excretion. Total Protein, Urine 17.0(H) <=13.5 mg/dL 01/13/2025 7:40 PM [facility] Creatinine, Urine 69 mg/dL 025 7:40 PM [facility] Urine (Urine, Voided) Non-Blood Collection / Unknown 01/13/2025 3:00 PM EST 01/13/2025 3:00 PM EST Narrative [facility] - 01/13/2025 7:40 PM EST The reference interval(s) are unavailable for this specimen type. Comparison of this result with other laboratory results, such as the concentration in the blood, serum, or plasma, is recommended. The test result should be integrated into the clinical context for interpretation. Patel Lerma MD LAB URINE ORDERAB LES Final Result Performing Organization Address [facility] Co de Phone Number [address] [address] * Blood Urea Nitrogen (BUN) (01/13/2025 2:44 PM EST) Pathologist [facility] BUN 9 6 - 23 mg/dL 01/13/2025 8:10 PM EST [facility] Blood (Blood) Venipuncture / Unknown 01/13/2025 2:44 PM EST 01/13/2025 2:44 PM EST Patel Lerma MD LAB BLOOD BKR ORD ERABLES Final Result Performing Organization Address [facility] Phone Number [address] [address] * Creatine Kinase (CK) (01/13/2025 2:44 PM EST) Creatine Kinase (CK) 56 26 - 192 U/L 01/13/2025 8:10 PM EST [facility] Blood (Blood) Venipuncture / Unknown 01/13/2025 2:44 PM EST 01/13/2025 2:44 PM EST Patel Lerma MD LAB BLOOD BKR ORD ERABLES Final Result Performing Organization Address [facility] Co de Phone Number [address] [address] * (ABNORMAL) Electrolytes (01/13/2025 2:44 PM EST) Pathologist [facility] Sodium 140 136 - 145 mmol/L 01/13/2025 8:10 PM EST [facility] Potassium 4.2 3.4 - 5.1 mmol/L 01/13/2025 8:10 PM [facility] Chloride 108(H) 98 - 107 mmol/L 01/13/2025 8:10 PM [facility] CO2 22 20 - 31 mmol/L 01/13/2025 8:10 PM [facility] Anion Gap 10 3 - 17 mmol/L 01/13/2025 8:10 PM [facility] Blood (Blood) Venipuncture / Unknown 01/13/2025 2:44 PM EST 01/13/2025 2:44 PM EST Patel Lerma MD LAB BLOOD BKR ORD ERABLES Final Result Performing Organization Address City/[facility]/ZIP Co de Phone Number [address] [address] * (ABNORMAL) HEPATITIS A ANTIBODY, TOTAL (11/26/2024 4:39 PM EDT) Pathologist [facility] HAV TOTAL AB Reactive(A ) NON-REACTI VE [facility] Blood 11/26/2024 4:39 PM EDT 11/26/2024 4:44 PM EDT Angela Leahy MD LAB BLOOD BKR O RDERABLES Final Result [address] [address] * Hepatitis A antibody, IgM (11/26/2024 4:39 PM EDT) Pathologist [facility] Hepatitis A Antibody, IgM NON-REACTI VE NON-REACTI VE [facility] 11/26/2024 4:39 PM EDT 11/26/2024 4:44 PM EDT Angela Leahy MD LAB BLOOD BKR O RDERABLES Final Result [address] [address] * (ABNORMAL) URINALYSIS WITH SEDIMENT (11/26/2024 4:39 PM EDT) WBC 0-4(A) NONE SEEN /hpf [facility] RBC 0-2(A) NONE SEEN /hpf [facility] URINE EPITHELIAL 5-10(A) NONE SEEN [facility] MUCUS NONE SEEN NONE SEEN /hpf [facility] BACTERIA Trace(A) NONE SEEN /hpf [facility] COLOR STRAW(A) Yellow [facility] CLARITY Clear [facility] GLUCOSE Negative Negative [facility] BILI Negative Negative [facility] KETONES Negative Negative [facility] SPECIFIC GRAVITY 1.010 1.005 - 1.030 [facility] BLOOD Negative Negative [facility] PH 7.5 5.0 - 8.0 [facility] Protein-UA Negative Negative [facility] NITRITE Negative Negative [facility] Leukocyte esterase, ur Negative Negative [facility] Urine (Urine) 11/26/2024 4:3 9 PM EDT 11/26/2024 4:43 PM EDT Angela Leahy MD LAB URINE ORDER FELIPE Final Result [address] [address] * Comprehensive metabolic panel (11/26/2024 4:39 PM EDT) SODIUM 139 133 - 146 mmol/L [facility] POTASSIUM 3.7 3.3 - 5.1 mmol/L [facility] CHLORIDE 107 96 - 108 mmol/L [facility] CO2 21 21 - 35 mmol/L [facility] BUN 7 6 - 19 mg/dL [facility] CREATININE 0.60 0.5 - 1.5 mg/dL [facility] GLUCOSE 84 70 - 99 mg/dL [facility] ALBUMIN 4.1 3.9 - 4.8 g/dL [facility] TOTAL PROTEIN 6.8 6.5 - 8.0 g/dL [facility] CALCIUM 9.1 8.4 - 10.3 mg/dL [facility] ALKALINE PHOSPHATASE 54 39 - 117 U/L [facility] TOTAL BILIRUBIN <0.2 0.0 - 1.2 mg/dL [facility] AST 17 0 - 37 U/L [facility] ALT 17 0 - 40 U/L [facility] GLOBULIN 2.7 1 - 4.8 g/dL [facility] EGFR >120 >59 mL/min/1.7 3m2 [facility] Comment:Estimated glomerular filtration rate calculated using the CKD-EPI refit equation. ANION GAP 15 10 - 20 mmol/L [facility] Blood 11/26/2024 4:39 PM EDT 11/26/2024 4:44 PM EDT Angela Leahy MD LAB BLOOD BKR O RDERABLES Final Result Performing Organization Address City/[facility]/ZIP Co de Phone Number [address] [address] * Hepatitis C antibody, qualitative (11/26/2024 4:39 PM EDT) HCV NON-REACTIV E NON-REACTI VE [facility] Blood 11/26/2024 4:39 PM EDT 11/26/2024 4:44 PM EDT Angela Leahy MD LAB BLOOD BKR O RDERABLES Final Result [address] [address] * Double stranded DNA antibodies (11/26/2024 4:39 PM EDT) ANTI DSDNA ANTIBODY POSITIVE AT 1:320 [facility] Comment: Performing Physician, Michael Talbot M.D., [id number] Normal: Negative at 1:10 Anti-douglas DNA Antibodies detected on Crithidia luciliae substrate. The indirect immunofluorescence test on Crithidia luciliae substrate shows that antibodies in the serum of this patient react with the kinetoplast of Crithidia luciliae, a monoflagellate protozoan organism. The kinetoplast contains small ringlets of double-stranded DNA. It does not contain single-stranded DNA or, except in very unusual circumstances, free histones. This staining pattern therefore most likely reflects the presence of antibodies to double-stranded DNA. Antibodies to double-stranded DNA are found in patients with SLE and in about 20 per cent of patients with mixed connective tissue disease (MCTD). This antibody is rarely found in other rheumatic diseases or in drug-induced SLE. Zkwo-dulqzw-mtjxgzlp DNA antibodies are usually detected in SLE patients with active disease, but not in those with spontaneous or induced remissions. Sequential testing of serum for the presence and titer of this antibody provides a cost-effective approach to following disease activity in many patients with SLE. Blood 11/26/2024 4:39 PM EDT 11/26/2024 4:44 PM EDT Angela Leahy MD LAB BLOOD BKR O RDERABLES Final Result [address] [address] * Hepatitis B core antibody, total (11/26/2024 4:39 PM EDT) HEP B CORE AB, TOT NON-REACTI VE NON-REACTI VE [facility] Blood 11/26/2024 4:39 PM EDT 11/26/2024 4:44 PM EDT Angela Leahy MD LAB BLOOD BKR O RDERABLES Final Result [facility] [address] [place] [address] * Sedimentation rate (ESR) (11/26/2024 4:39 PM EDT) ESR 14 0 - 20 mm/h [facility] Blood 11/26/2024 4:39 PM EDT 11/26/2024 4:44 PM EDT us Angela Leahy MD LAB BLOOD BKR O RDERABLES Final Result [facility] [address] [place] [address] * (ABNORMAL) CBC and differential (11/26/2024 4:39 PM EDT) WBC 4.81 4.00 - 11.00 K/uL [facility] RBC 4.03 4.00 - 5.20 M/uL [facility] HGB 12.6 12.0 - 16.0 g/dL [facility] HCT 36.8 36.0 - 46.0 % [facility] PLT 273 150 - 450 K/uL [facility] MCV 91.3 80.0 - 100.0 fL [facility] MCH 31.3(H) 27.0 - 31.0 pg [facility] MCHC 34.2 32.0 - 36.0 g/dL [facility] RDW 11.6 11.5 - 14.5 % [facility] MPV 10.6 8.4 - 12.0 fL [facility] NRBC 0.00 0.00 /100 WBCs [facility] ABSOLUTE NRBC 0.00 0.00 K/uL [facility] DIFF [employer] Auto [facility] NEUTS 76.8(H) 48.0 - 76.0 % [facility] LYMPHS 15.6(L) 18.0 - 41.0 % [facility] MONOS 6.4 4.0 - 11.0 % [facility] EOS 0.2 0.0 - 5.0 % [facility] BASOS 0.6 0.0 - 1.5 % [facility] Granulocytes, immature (%) 0.4 0.0 - 0.9 % [facility] ABSOLUTE NEUTS 3.69 1.92 - 7.60 K/uL [facility] ABSOLUTE LYMPHS 0.75 0.72 - 4.10 K/uL [facility] ABSOLUTE MONOS 0.31 0.16 - 1.10 K/uL [facility] ABSOLUTE EOS 0.01 0.00 - 0.50 K/uL [facility] ABSOLUTE BASOS 0.03 0.00 - 0.15 K/uL [facility] Granulocytes, immature 0.02 0.00 - 0.09 K/uL [facility] Blood 11/26/2024 4:39 PM EDT 11/26/2024 4:44 PM EDT Angela Leahy MD LAB BLOOD BKR O RDERABLES Final Result [facility] [address] [place] [address] * Complement C3 (11/26/2024 4:39 PM EDT) C3 89 81 - 157 mg/dl [facility] Blood 11/26/2024 4:39 PM EDT 11/26/2024 4:44 PM EDT Angela Leahy MD LAB BLOOD BKR O RDERABLES Final Result [address] [address] * (ABNORMAL) Complement C4 (11/26/2024 4:39 PM EDT) C4 10(L) 12 - 39 mg/dL [facility] Blood 11/26/2024 4:39 PM EDT 11/26/2024 4:44 PM EDT Angela Leahy MD LAB BLOOD BKR O RDERABLES Final Result [address] [address] * C-Reactive Protein (11/26/2024 4:39 PM EDT) C REACTIVE PROTEIN <3.0 0.0 - 4.0 mg/L [facility] Blood 11/26/2024 4:39 PM EDT 11/26/2024 4:44 PM EDT Angela Leahy MD LAB BLOOD BKR O LISA Final Result Performing Organization Address City/State/[facility] Co de Phone Number [facility] [address] [place] [address] from Last 3 Months Insurance [facility] PPO [facility] PPO [address] [employer] OUT OF STATE PPO [address] [employer] PPO [address] [employer] OUT OF STATE PPO [employer] STATE PPO Advance Directives For more information, please contact: [phone] (9AM - 5PM [place], Sunday-Sunday) * Full Code (Latest Code Status on File) Date Activated Date Inactivated Comments 07/22/2024 8:56 AM Question Answer Comments Code Status Confirmed With: Other (specify below ) Code Discussion Comments: periop Care Teams Meat Stringer Relationship Specialty Start Date End Date Goldie Melo MD [address] [place] [address], [address] [place] [address] [email or web address] PCP - General Family Medicine 04/06/22 Additional Source Comments The information contained in this document represents components of the legal health record. It is not the complete legal health record.[facility]
--- OUTSIDE RECORDS SUMMARY | 2025-01-21 18:41 | XMS_ITS | Encounter Summary ---
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 I have james cortez 09/10/2023 How many times have you move [...] Orientation Asexual 03/30/2021 2: 41 PM EST documented as of this encounter Plan of Treatment Upcoming Encounters Date Type Department Care Team ([facility] st Contact Info) Description 02/27/2025 1:45 PM EST Nurse Only [facility] [address] [place] [address] Goldie Melo MD [address] [place] [address] [address] [place] [address] [email or web address] documented as of this encounter Results * (ABNORMAL) Protein/Creatinine Ratio, Random Urine, Total (01/13/2025 3:00 PM EST) Total Protein/Creatinine Ratio, Urine 0.25(H) <0.15 01/13/2025 7:40 PM [facility] Comment:Ratios <0.2 reflect insignificant protein excretion. Total Protein, Urine 17.0(H) <=13.5 mg/dL 01/13/2025 7:40 PM [facility] Creatinine, Urine 69 mg/dL 025 7:40 PM [facility] Urine (Urine, Voided) Non-Blood Collection / Unknown 01/13/2025 3:00 PM EST 01/13/2025 3:00 PM EST [facility] - 01/13/2025 7:40 PM EST The reference interval(s) are unavailable for this specimen type. Comparison of this result with other laboratory results, such as the concentration in the blood, serum, or plasma, is recommended. The test result should be integrated into the clinical context for interpretation. us Patel Lerma MD LAB URINE ORDERAB LES Final Result [facility] [address] [place] [address] * (ABNORMAL) Electrolytes (01/13/2025 2:44 PM EST) Sodium 140 136 - 145 mmol/L 01/13/2025 8:10 PM [facility] Potassium 4.2 3.4 - 5.1 mmol/L 01/13/2025 8:10 PM [facility] Chloride 108(H) 98 - 107 mmol/L 01/13/2025 8:10 PM [facility] CO2 22 20 - 31 mmol/L 01/13/2025 8:10 PM [facility] Anion Gap 10 3 - 17 mmol/L 01/13/2025 8:10 PM EST [facility] Blood (Blood) Venipuncture / Unknown 01/13/2025 2:44 PM EST 01/13/2025 2:44 PM EST Patel Lerma MD LAB BLOOD BKR ORD ERABLES Final Result Performing Organization Address City/[facility]/ZIP Co de Phone Number [address] [address] * Blood Urea Nitrogen (BUN) (01/13/2025 2:44 PM EST) BUN 9 6 - 23 mg/dL 01/13/2025 8:10 PM EST [facility] Blood (Blood) Venipuncture / Unknown 01/13/2025 2:44 PM EST 01/13/2025 2:44 PM EST us Patel Lerma MD LAB BLOOD BKR ORD ERABLES Final Result Performing Organization Address [facility]/ZIP Co de Phone Number [address] [address] * Creatine Kinase (CK) (01/13/2025 2:44 PM EST) Creatine Kinase (CK) 56 26 - 192 U/L 01/13/2025 8:10 PM EST [facility] Blood (Blood) Venipuncture / Unknown 01/13/2025 2:44 PM EST 01/13/2025 2:44 PM EST us Patel Lerma MD LAB BLOOD BKR ORD ERABLES Final Result Performing Organization Address [facility] Co de Phone Number [address] [address] documented in this encounter Visit Diagnoses Diagnosis Other proteinuria- Primary alf (current) use of unspecified 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 and immunosuppressants Systemic lupus erythematosus, unspecified SLE type, unspecified organ involvement status documented in this encounter Additional Health Concerns Assessment Noted Time PHQ-2 Depression Total Score: 1 09/10/19 24 3:46 PM EDT documented as of this encounter Care Teams Signing Teacher Relationship Specialty Start Date End Date Goldie Melo MD [address] [place] [address], [address] [place] [address] [email or web address] PCP - General Family Medicine 04/06/22 documented as of this encounter Additional Source Comments The information contained in this document represents components of the legal health record. It is not the complete legal health record.[facility]
--- OUTSIDE RECORDS SUMMARY | 2025-01-21 18:41 | XMS_ITS | Encounter Summary ---
Author Organization [facility] Address [address] [place] [address] Phone Care Team Providers Care Supply Cataloguer Name Role Phone Goldie Melo MD Primary Care Provider [phone] Encounter Details Date Type Department Care Team (Late st Contact Info) Description 07/22/2024 Procedure Pass OR Admitting Dept - Virtual Department [address] [place] [address] Social History Tobacco Use Types Packs/Day Years [...] 02/27/2025 1:45 PM EST Nurse Only [facility] [address] [place] [address] Goldie Melo MD [address] [facility], [address] [place], [place] [id number] [email or web address] documented as of this encounter Visit Diagnoses Not on filedocumented in this encounter Additional Health Concerns Assessment Noted Time PHQ-2 Depression Total Score: 1 07/22/20 24 3:46 PM EDT documented as of this encounter Care Teams Supply Cataloguer Relationship Specialty Start Date End Date Goldie Melo MD [address] [place] [address], [address] [place] [address] [email or web address] PCP - General Family Medicine 04/06/22 documented as of this encounter Additional Source Comments The information contained in this document represents components of the legal health record. It is not the complete legal health record.[facility]
== END 2025-01-21 16:13 | disposition home or self-care (01) ==
LOC: HO.HKA 15:48
PROVIDERS: PCP Student in an Organized Health Care Education/Training Program; Visit Provider Internal Medicine Nephrology
DX: Z79.60 Long term (current) use of unspecified 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 and immunosuppressants (principal); R80.8 Other proteinuria; M32.9 Systemic lupus erythematosus, unspecified
CPT/HCPCS: 99214